=== PATIENT | female | born 1985 | race Hispanic/Latino ===

== ENCOUNTER 2016-09-07 12:24 | Inpatient (IN) | payer MEDICAID ==
[2016-09-07] MEDS ORDERED: LACTATED RINGERS 2,000 ML IV ONE (13:34)
[2016-09-07] MEDS ORDERED: ZOFRAN IV ONE ×3 (13:36→14:00)
[2016-09-07] MEDS ORDERED: NACL 0.9% IV ONE (14:00)
[2016-09-07] MEDS ORDERED: LACTATED RINGERS 1,000 ML IV SCH ×2 (14:00)
[2016-09-07] MEDS ORDERED: ePHEDrine SULFATE IV PRN ×2 (17:50→20:37)
[2016-09-07] MEDS ORDERED: SUBLIMAZE IV PRN (17:50)
[2016-09-07] MEDS ORDERED: ZOFRAN IV PRN (17:50)
[2016-09-07] MEDS ORDERED: BRETHINE SUB-Q PRN (17:50)
[2016-09-07] MEDS ORDERED: MINERAL OIL PO PRN (17:50)
[2016-09-07] MEDS ORDERED: BRETHINE IVP PRN (17:50)
[2016-09-07] MEDS ORDERED: PITOCin/NS 30 UNIT/500ML 500 ML IV SCH (18:00)
[2016-09-07] MEDS ORDERED: PITOCin/NS 20 UNIT/1000ML DRIP 1,000 ML IV SCH (18:00)
--- NOTE | 2016-09-07 18:00 | History and Physical Report ---
History of Present Illness Date of examination: 09/07/16 (Obs in [facility] for c/o vomiting and diarrhea since 01 :00 this AM, now improved after IVF and Zofran. Now c/o lower back pain and lower abd pain intermittentlty abd pelvic pressure. ) Date of admission: 09/07/16 17:32 Past History Past Medical History: other (1. Scoliosis: had epidural without difficulty with previous 2 pregnancies. 2. Fx R arm, 3. hx preE with previous pg, 4. 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 Prescribed Valtrex) Family/Genetic History: diabetes Social history: no significant social history - Obstetrical History Expected Date of Delivery: 09/29/16 Actual Gestation: 36 Week(s) 6 Day(s) : 3 Para: 2 Hx # Term Pregnancies: 2 Number of Living Children: 2 #1 year: ,011 Birthweight: 3.941 kg Method of Delivery: Vaginal Gestational age at delivery: 40 Complications: none #2 Gender: Male year: ,[birth year] Birthweight: 3.685 kg Method of Delivery: Vaginal Gestational age at delivery: 38 Complications: none Medications and Allergies Allergies Allergy/AdvReac Type Severity Reaction Status Date / Time No Known Allergies Allergy Verified 09/07/16 13:20 Home Medications Medication Instructions Recorded Confirmed Last Taken Type Aspirin EC [Aspirin Enteric Coated 81 mg PO QDAY 09/07/16 09/07/16 09/06/16 21: 00 History TAB] 1 Pnv with Ca,No.72/Iron/FA [Pnv 1 tab PO DAILY 09/07/16 09/07/16 09/06/16 21:00 History Plus Multivit Tab] 1 Review of Systems Constitutional: fever, other (Reports onset of nausea, vomiting and diarrhea starting 01:00 this AM.) Eyes: PERRL Ears, nose, mouth and throat: deferred Gastrointestinal: abdominal pain (reports lower abd cramping c/w ctx since arriving OBT), nausea, vomiting, diarrhea Integumentary: rash (Rash on face noted: pt states she always gets this rash when she has vomiting) - Vital Signs Vital signs: Vital Signs Pulse BP Pulse Ox 98 H 124/69 97 09/07/16 13:15 09/07/16 13:15 09/07/16 13:15 Temp Pulse Resp BP Pulse Ox 101.4 F H 107 H 20 139/77 97 09/07/16 17:07 09/07/16 16:57 09/07/16 17:07 09/07/16 16:53 09/07/16 16:57 - Physical Exam Breasts: Positive: normal Cardiovascular: Normal S1, Normal S2, No murmurs Lungs: Positive: Clear to auscultation Abdomen: Positive: normal appearance, soft, other (Reports mild tenderness suprapubic and no fundal tenderness on palpation) Genitourinary (Female): Positive: normal external genitalia (VE deferred d/t recent exam by RN and fever) Uterus: Positive: normal size Adnexa: both: normal Extremities: Deep Tendon Reflex Grade: Normal +2 - Obstetrical FHR: auscultation normal Uterine Contraction Monitor Mode: External Cervical Dilatation: 4.5 (Per RN exam) Uterine Contraction Pattern: Irregular Results All other labs normal. Assessment and Plan A. 1. PMHx: obesity preeclampsia Abn pap Scoliosis 2. This gestation: Amniotic band with no involvement followed weekly by [facility]\ hydramnios CITLALI >24 Unstable lie 3. Current: Fever (101.4)with onset during evaluation OBT Nausea, vomiting, diarrhea onset 01:00 today Cx change 3cm to 4.5 with ongoing ctx during obs in OBT P 1. Admit to L&D 2. Routine labs, VS, EFM 3. Obs for labor progress 4 Ongoing assessment of fever and other sx 6. UA, CMP added to routine labs 7. Pt care discussed with Dr Branch who was informed of above info and agrees with POC. Per Dr Branch, abx held until CBC results evaluated. 8. End of my shift report to Dr Branch to assume care now.
[2016-09-07 19:53] LABS: Hematocrit 35.2 % (30.3-42.9); Hemoglobin 11.9 gm/dl (10.1-14.3); Mean Corpuscular HGB Conc 34 % (30-34); Mean Corpuscular Hemoglobin 29 pg (28-32); Mean Corpuscular Volume 85 fl (79-97); Platelet Count 152 K/mm3 (140-440); Red Blood Count 4.15 M/mm3 (3.65-5.03); Red Cell Distribution Width 13.9 % (13.2-15.2); White Blood Count 6.5 K/mm3 (4.5-11.0)
[2016-09-07] MEDS ORDERED: NARCAN 2 MG/2 ML IV PRN (20:37)
--- NOTE | 2016-09-07 20:37 | Anesthesia Consultation ---
Anesthesia Consult and Med Hx Date of service: 09/07/16 - Airway Anesthetic Teeth Evaluation: Good ROM Head & Neck: Adequate Mental/Hyoid Distance: Adequate Mallampati Class: Class II Intubation Access Assessment: Good - Pulmonary Exam CTA: Yes - Cardiac Exam Cardiac Exam: No Murmur - Pre-Operative Health Status ASA Pre-Surgery Classification: ASA2 Proposed Anesthetic Plan: Epidural - Pulmonary Hx Asthma: No COPD: No Hx Pneumonia: No - Cardiovascular System Hx Hypertension: Yes (Since the pregancy on labetolol) - Central Nervous System Hx Seizures: No Hx Psychiatric Problems: No - Endocrine Hx Renal Disease: No Hx End Stage Renal Disease: No Hx Hypothyroidism: No Hx Hyperthyroidism: No - Hematic Hx Anemia: No Hx Sickle Cell Disease: No - Other Systems Hx Alcohol Use: No
[2016-09-07] MEDS: LACTATED RINGERS 1,000 ML IV SCH (21:14)
[2016-09-07] MEDS: fentaNYL-BUPIV 2 MCG/ML-0.125% 100 ML EPIDURAL SCH (21:30)
[2016-09-07 22:24] LABS: Bacteria,Urine 1+ /HPF (Negative); Mucus,Urine 2+ /HPF; WBC,Urine < 1.0 /HPF (0.0-6.0)
[2016-09-08] MEDS ORDERED: XYLOCAINE 2% INFILTRATI ONE (02:17)
[2016-09-08] MEDS: LACTATED RINGERS 1,000 ML IV SCH ×2 (06:41→11:29)
[2016-09-08 06:56] LABS: Alanine Aminotransferase 6 units/L (7-56); Albumin 2.9 g/dL (3.9-5); Albumin/Globulin Ratio 1.1 %; Alkaline Phosphatase 91 units/L (35-129); Anion Gap 20 mmol/L; Bilirubin,Total 0.5 mg/dL (0.1-1.2); Blood Urea Nitrogen 5 mg/dL (7-17); Calcium 8.5 mg/dL (8.4-10.2); Carbon Dioxide 19 mmol/L (22-30); Chloride 101.4 mmol/L (98-107); Glucose 74 mg/dL (65-100); Potassium 3.4 mmol/L (3.6-5.0); Sodium 137 mmol/L (137-145); Total Protein 5.6 g/dL (6.3-8.2)
[2016-09-08] MEDS ORDERED: ePHEDrine SULFATE ONE (10:04)
[2016-09-08] MEDS: fentaNYL-BUPIV 2 MCG/ML-0.125% 100 ML EPIDURAL SCH (10:35)
--- NOTE | 2016-09-08 10:46 | Progress Note ---
Assessment and Plan Assume care of pt. A: 1. PMHx: obesity preeclampsia Abn pap Scoliosis 2. This gestation: Amniotic band with no involvement followed weekly by [facility] Polyhydramnios CITLALI >24 Unstable lie; Vertex presentation confirmed by US 09/07/16 3. Current: Fever resolved Nausea, vomiting, diarrhea: resolved SVE: /-3 Comfortable with epidural Pitocin currently 12 mu P: Routine intrapartum care Pitocin Augmentation Anticipate Subjective - Subjective Date of service: 09/08/16 Principal diagnosis: IUP at 37 wks, Polyhydramnios, unstable lie Interval history: See H&P Patient reports: movement normal, no loss of fluid, no vaginal bleeding Objective - Vital Signs Vital Signs: Vital Signs - 12hr 09/07/16 09/07/16 09/07/16 22:43 22:58 23:13 Temperature Pulse Rate 105 H 88 94 H Respiratory Rate Blood Pressure 145/68 130/63 130/67 O2 Sat by Pulse Oximetry 09/07/16 09/07/16 09/07/16 23:28 23:43 23:58 Temperature Pulse Rate 98 H 100 H 88 Respiratory Rate Blood Pressure 149/65 147/68 143/65 O2 Sat by Pulse Oximetry 09/08/16 09/08/16 09/08/16 00:14 00:28 00:43 Temperature Pulse Rate 91 H 97 H 106 H Respiratory Rate Blood Pressure 133/67 128/63 138/67 O2 Sat by Pulse Oximetry 09/08/16 09/08/16 09/08/16 00:59 01:13 01:28 Temperature Pulse Rate 104 H 110 H 94 H Respiratory Rate Blood Pressure 124/58 135/63 138/65 O2 Sat by Pulse Oximetry 09/08/16 09/08/16 09/08/16 01:43 02:25 02:30 Temperature 98.0 F Pulse Rate 97 H 101 H Respiratory Rate Blood Pressure 141/65 140/76 O2 Sat by Pulse Oximetry 09/08/16 09/08/16 09/08/16 02:40 02:55 03:10 Temperature Pulse Rate 96 H 92 H 93 H Respiratory Rate Blood Pressure 131/74 133/65 133/64 O2 Sat by Pulse Oximetry 09/08/16 09/08/16 09/08/16 03:25 03:40 03:57 Temperature Pulse Rate 107 H 100 H 97 H Respiratory Rate Blood Pressure 137/70 136/68 116/62 O2 Sat by Pulse Oximetry 09/08/16 09/08/16 09/08/16 04:10 04:25 04:40 Temperature Pulse Rate 95 H 90 92 H Respiratory Rate Blood Pressure 115/55 107/55 110/53 O2 Sat by Pulse Oximetry 09/08/16 09/08/16 09/08/16 04:55 05:10 05:25 Temperature Pulse Rate 87 96 H 85 Respiratory Rate Blood Pressure 109/55 115/56 115/59 O2 Sat by Pulse Oximetry 09/08/16 09/08/16 09/08/16 05:42 05:55 06:11 Temperature Pulse Rate 85 84 86 Respiratory Rate Blood Pressure 119/57 123/63 110/56 O2 Sat by Pulse Oximetry 09/08/16 09/08/16 09/08/16 06:25 06:39 06:40 Temperature 97.9 F Pulse Rate 83 87 Respiratory Rate Blood Pressure 136/67 133/63 O2 Sat by Pulse Oximetry 09/08/16 09/08/16 09/08/16 06:55 07:04 07:10 Temperature 97.8 F Pulse Rate 87 83 Respiratory 18 Rate Blood Pressure 125/57 124/62 O2 Sat by Pulse Oximetry 09/08/16 09/08/16 09/08/16 07:25 07:41 07:55 Temperature Pulse Rate 93 H 92 H 90 Respiratory Rate Blood Pressure 125/56 130/65 123/62 O2 Sat by Pulse Oximetry 09/08/16 09/08/16 09/08/16 08:11 08:13 08:14 Temperature Pulse Rate 88 85 78 Respiratory Rate Blood Pressure 145/65 130/62 O2 Sat by Pulse 97 Oximetry 09/08/16 09/08/16 09/08/16 08:16 08:19 08:24 Temperature Pulse Rate 86 83 84 Respiratory Rate Blood Pressure 124/59 O2 Sat by Pulse 96 97 Oximetry 09/08/16 09/08/16 09/08/16 08:25 08:29 08:34 Temperature Pulse Rate 87 93 H 82 Respiratory Rate Blood Pressure 130/69 O2 Sat by Pulse 97 97 Oximetry 09/08/16 09/08/16 09/08/16 08:39 08:40 08:44 Temperature Pulse Rate 81 73 88 Respiratory Rate Blood Pressure 135/67 O2 Sat by Pulse 95 97 Oximetry 09/08/16 09/08/16 09/08/16 08:49 08:54 08:57 Temperature Pulse Rate 82 89 80 Respiratory Rate Blood Pressure 130/75 O2 Sat by Pulse 96 97 Oximetry 09/08/16 09/08/16 09/08/16 08:59 09:04 09:09 Temperature Pulse Rate 75 81 82 Respiratory Rate Blood Pressure O2 Sat by Pulse 97 96 96 Oximetry 09/08/16 09/08/16 09/08/16 09:10 09:14 09:19 Temperature Pulse Rate 90 90 80 Respiratory Rate Blood Pressure 126/64 O2 Sat by Pulse 97 97 Oximetry 09/08/16 09/08/16 09/08/16 09:24 09:25 09:29 Temperature Pulse Rate 80 69 78 Respiratory Rate Blood Pressure 133/81 O2 Sat by Pulse 97 96 Oximetry 09/08/16 09/08/16 09/08/16 09:34 09:39 09:40 Temperature Pulse Rate 84 77 75 Respiratory Rate Blood Pressure 139/82 O2 Sat by Pulse 95 97 Oximetry 09/08/16 09/08/16 09/08/16 09:44 09:49 09:54 Temperature Pulse Rate 92 H 95 H 89 Respiratory Rate Blood Pressure O2 Sat by Pulse 96 98 98 Oximetry 09/08/16 09/08/16 09/08/16 09:57 09:59 10:01 Temperature Pulse Rate 90 89 96 H Respiratory Rate Blood Pressure 132/72 O2 Sat by Pulse 98 91 Oximetry 09/08/16 09/08/16 09/08/16 10:04 10:07 10:09 Temperature Pulse Rate 91 H 92 H 85 Respiratory Rate Blood Pressure 159/81 150/62 O2 Sat by Pulse 99 99 Oximetry 09/08/16 09/08/16 09/08/16 10:11 10:14 10:16 Temperature Pulse Rate 82 89 91 H Respiratory Rate Blood Pressure 141/65 139/66 O2 Sat by Pulse 99 Oximetry 09/08/16 09/08/16 09/08/16 10:17 10:19 10:21 Temperature Pulse Rate 85 82 85 Respiratory Rate Blood Pressure 121/67 133/69 130/62 O2 Sat by Pulse 98 Oximetry 09/08/16 09/08/16 09/08/16 10:23 10:25 10:27 Temperature Pulse Rate 86 93 H 83 Respiratory Rate Blood Pressure 131/59 103/57 111/58 O2 Sat by Pulse 97 Oximetry 09/08/16 09/08/16 09/08/16 10:30 10:31 10:34 Temperature Pulse Rate 87 86 85 Respiratory Rate Blood Pressure 114/65 113/55 118/59 O2 Sat by Pulse 98 Oximetry 09/08/16 09/08/16 10:35 10:37 Temperature Pulse Rate 89 90 Respiratory 20 Rate Blood Pressure 142/75 146/79 O2 Sat by Pulse 97 Oximetry - Exam Breasts: normal Cardiovascular: Regular rate Lungs: Clear to auscultation, Normal air movement Vulva: both: normal FHR: category 1 Uterine Contraction Monitor Mode: External Cervical Dilatation: 5 Cervical Effacement Percentage: 75 station: -3 Uterine Contraction Pattern: Irregular Uterine Tone Measurement Phase: Resting Uterine Contraction Intensity: Mild Deep Tendon Reflex Grade: Normal +2 - Labs Labs: Abnormal Labs 09/08/16 05:59 Potassium 3.4 L Carbon Dioxide 19 L BUN 5 L Creatinine 0.4 L ALT 6 L Total Protein 5.6 L Albumin 2.9 L Laboratory Results - last 24 hr 09/07/16 09/07/16 09/07/16 19:35 19:35 21:45 WBC 6.5 RBC 4.15 Hgb 11.9 Hct 35.2 MCV 85 MCH 29 MCHC 34 RDW 13.9 Plt Count 152 Sodium Potassium Chloride Carbon Dioxide Anion Gap BUN Creatinine Estimated GFR BUN/Creatinine Ratio Glucose Calcium Total Bilirubin AST ALT Alkaline Phosphatase Total Protein Albumin Albumin/Globulin Ratio Urine WBC (Auto) < 1.0 Urine RBC (Auto) 7.0 U Epithel Cells (Auto) 2.0 Urine Bacteria (Auto) 1+ Urine Mucus 2+ Blood Type O POSITIVE Antibody Screen Negative 09/08/16 05:59 WBC RBC Hgb Hct MCV MCH MCHC RDW Plt Count Sodium 137 Potassium 3.4 L Chloride 101.4 Carbon Dioxide 19 L Anion Gap 20 BUN 5 L Creatinine 0.4 L Estimated GFR > 60 BUN/Creatinine Ratio 12.50 Glucose 74 Calcium 8.5 Total Bilirubin 0.5 AST 11 ALT 6 L Alkaline Phosphatase 91 Total Protein 5.6 L Albumin 2.9 L Albumin/Globulin Ratio 1.1 Urine WBC (Auto) Urine RBC (Auto) U Epithel Cells (Auto) Urine Bacteria (Auto) Urine Mucus Blood Type Antibody Screen
--- NOTE | 2016-09-08 16:26 | Progress Note ---
Assessment and Plan A: 1. PMHx: obesity preeclampsia Abn pap Scoliosis 3. Current: Comfortable with epidural Pitocin currently 20 mu SVE: 6/75/-3 AROM, Large amount clear fluid FSE placed Position to far L Lateral with anterior leg in stirrup P: Routine intrapartum care Pitocin Augmentation Anticipate Subjective - Subjective Date of service: 09/08/16 Principal diagnosis: IUP at 37 wks, Polyhydramnios, unstable lie Interval history: See H&P Patient reports: movement normal Objective - Vital Signs Vital Signs: Vital Signs - 12hr 09/08/16 09/08/16 09/08/16 04:25 04:40 04:55 Temperature Pulse Rate 90 92 H 87 Respiratory Rate Blood Pressure 107/55 110/53 109/55 O2 Sat by Pulse Oximetry 09/08/16 09/08/16 09/08/16 05:10 05:25 05:42 Temperature Pulse Rate 96 H 85 85 Respiratory Rate Blood Pressure 115/56 115/59 119/57 O2 Sat by Pulse Oximetry 09/08/16 09/08/16 09/08/16 05:55 06:11 06:25 Temperature Pulse Rate 84 86 83 Respiratory Rate Blood Pressure 123/63 110/56 136/67 O2 Sat by Pulse Oximetry 09/08/16 09/08/16 09/08/16 06:39 06:40 06:55 Temperature 97.9 F Pulse Rate 87 87 Respiratory Rate Blood Pressure 133/63 125/57 O2 Sat by Pulse Oximetry 09/08/16 09/08/16 09/08/16 07:04 07:10 07:25 Temperature 97.8 F Pulse Rate 83 93 H Respiratory 18 Rate Blood Pressure 124/62 125/56 O2 Sat by Pulse Oximetry 09/08/16 09/08/16 09/08/16 07:41 07:55 08:11 Temperature Pulse Rate 92 H 90 88 Respiratory Rate Blood Pressure 130/65 123/62 145/65 O2 Sat by Pulse Oximetry 09/08/16 09/08/16 09/08/16 08:13 08:14 08:16 Temperature Pulse Rate 85 78 86 Respiratory Rate Blood Pressure 130/62 124/59 O2 Sat by Pulse 97 Oximetry 09/08/16 09/08/16 09/08/16 08:19 08:24 08:25 Temperature Pulse Rate 83 84 87 Respiratory Rate Blood Pressure 130/69 O2 Sat by Pulse 96 97 Oximetry 09/08/16 09/08/16 09/08/16 08:29 08:34 08:39 Temperature Pulse Rate 93 H 82 81 Respiratory Rate Blood Pressure O2 Sat by Pulse 97 97 95 Oximetry 09/08/16 09/08/16 09/08/16 08:40 08:44 08:49 Temperature Pulse Rate 73 88 82 Respiratory Rate Blood Pressure 135/67 O2 Sat by Pulse 97 96 Oximetry 09/08/16 09/08/16 09/08/16 08:54 08:57 08:59 Temperature Pulse Rate 89 80 75 Respiratory Rate Blood Pressure 130/75 O2 Sat by Pulse 97 97 Oximetry 09/08/16 09/08/16 09/08/16 09:04 09:09 09:10 Temperature Pulse Rate 81 82 90 Respiratory Rate Blood Pressure 126/64 O2 Sat by Pulse 96 96 Oximetry 09/08/16 09/08/16 09/08/16 09:14 09:19 09:24 Temperature Pulse Rate 90 80 80 Respiratory Rate Blood Pressure O2 Sat by Pulse 97 97 97 Oximetry 09/08/16 09/08/16 09/08/16 09:25 09:29 09:34 Temperature Pulse Rate 69 78 84 Respiratory Rate Blood Pressure 133/81 O2 Sat by Pulse 96 95 Oximetry 09/08/16 09/08/16 09/08/16 09:39 09:40 09:44 Temperature Pulse Rate 77 75 92 H Respiratory Rate Blood Pressure 139/82 O2 Sat by Pulse 97 96 Oximetry 09/08/16 09/08/16 09/08/16 09:49 09:54 09:57 Temperature Pulse Rate 95 H 89 90 Respiratory Rate Blood Pressure 132/72 O2 Sat by Pulse 98 98 Oximetry 09/08/16 09/08/16 09/08/16 09:59 10:01 10:04 Temperature Pulse Rate 89 96 H 91 H Respiratory Rate Blood Pressure O2 Sat by Pulse 98 91 99 Oximetry 09/08/16 09/08/16 09/08/16 10:07 10:09 10:11 Temperature Pulse Rate 92 H 85 82 Respiratory Rate Blood Pressure 159/81 150/62 141/65 O2 Sat by Pulse 99 Oximetry 09/08/16 09/08/16 09/08/16 10:14 10:16 10:17 Temperature Pulse Rate 89 91 H 85 Respiratory Rate Blood Pressure 139/66 121/67 O2 Sat by Pulse 99 Oximetry 09/08/16 09/08/16 09/08/16 10:19 10:21 10:23 Temperature Pulse Rate 82 85 86 Respiratory Rate Blood Pressure 133/69 130/62 131/59 O2 Sat by Pulse 98 Oximetry 09/08/16 09/08/16 09/08/16 10:25 10:27 10:30 Temperature Pulse Rate 93 H 83 87 Respiratory Rate Blood Pressure 103/57 111/58 114/65 O2 Sat by Pulse 97 98 Oximetry 09/08/16 09/08/16 09/08/16 10:31 10:34 10:35 Temperature Pulse Rate 86 85 89 Respiratory 20 Rate Blood Pressure 113/55 118/59 142/75 O2 Sat by Pulse 97 Oximetry 09/08/16 09/08/16 09/08/16 10:37 10:40 10:45 Temperature Pulse Rate 90 86 90 Respiratory Rate Blood Pressure 146/79 O2 Sat by Pulse 98 98 Oximetry 09/08/16 09/08/16 09/08/16 10:50 10:55 11:00 Temperature Pulse Rate 98 H 99 H 90 Respiratory Rate Blood Pressure 138/75 O2 Sat by Pulse 98 97 97 Oximetry 09/08/16 09/08/16 09/08/16 11:05 11:10 11:15 Temperature Pulse Rate 87 93 H 94 H Respiratory Rate Blood Pressure O2 Sat by Pulse 99 97 98 Oximetry 09/08/16 09/08/16 09/08/16 11:20 11:24 11:25 Temperature Pulse Rate 94 H 83 87 Respiratory Rate Blood Pressure 140/70 O2 Sat by Pulse 97 96 Oximetry 09/08/16 09/08/16 09/08/16 11:30 11:35 11:38 Temperature 98.5 F Pulse Rate 96 H 82 Respiratory 20 Rate Blood Pressure O2 Sat by Pulse 97 97 Oximetry 09/08/16 09/08/16 09/08/16 11:39 11:40 11:45 Temperature Pulse Rate 93 H 95 H 95 H Respiratory Rate Blood Pressure 139/77 O2 Sat by Pulse 96 97 Oximetry 09/08/16 09/08/16 09/08/16 11:50 11:53 11:56 Temperature Pulse Rate 90 85 89 Respiratory Rate Blood Pressure 132/73 O2 Sat by Pulse 96 97 Oximetry 09/08/16 09/08/1609/08/17 12:00 12:06 12:09 Temperature Pulse Rate 98 H 83 85 Respiratory Rate Blood Pressure 134/74 O2 Sat by Pulse 99 98 Oximetry 09/08/16 09/08/16 09/08/16 12:10 12:15 12:20 Temperature Pulse Rate 81 95 H 81 Respiratory Rate Blood Pressure O2 Sat by Pulse 98 96 97 Oximetry 09/08/16 09/08/16 09/08/16 12:23 12:26 12:31 Temperature Pulse Rate 98 H 85 79 Respiratory Rate Blood Pressure 139/78 O2 Sat by Pulse 95 95 Oximetry 09/08/16 09/08/16 09/08/16 12:33 12:35 12:39 Temperature Pulse Rate 92 H 82 92 H Respiratory Rate Blood Pressure 138/72 O2 Sat by Pulse 94 95 94 Oximetry 09/08/16 09/08/16 09/08/16 12:41 12:44 12:45 Temperature Pulse Rate 87 82 87 Respiratory Rate Blood Pressure O2 Sat by Pulse 94 94 95 Oximetry 09/08/16 09/08/16 09/08/16 12:50 12:53 12:55 Temperature Pulse Rate 88 85 81 Respiratory Rate Blood Pressure 149/67 O2 Sat by Pulse 96 95 Oximetry 09/08/16 09/08/16 09/08/16 13:01 13:05 13:08 Temperature Pulse Rate 85 83 86 Respiratory Rate Blood Pressure 140/67 O2 Sat by Pulse 96 96 Oximetry 09/08/16 09/08/16 09/08/16 13:10 13:15 13:20 Temperature Pulse Rate 94 H 94 H 87 Respiratory Rate Blood Pressure O2 Sat by Pulse 97 98 98 Oximetry 09/08/16 09/08/16 09/08/16 13:25 13:31 13:36 Temperature Pulse Rate 95 H 86 89 Respiratory Rate Blood Pressure 132/77 O2 Sat by Pulse 97 98 98 Oximetry 09/08/16 09/08/16 09/08/16 13:39 13:47 13:52 Temperature Pulse Rate 93 H 93 H 93 H Respiratory Rate Blood Pressure 130/68 O2 Sat by Pulse 98 97 Oximetry 09/08/16 09/08/16 09/08/16 13:54 13:56 14:01 Temperature Pulse Rate 82 95 H 85 Respiratory Rate Blood Pressure 124/69 O2 Sat by Pulse 98 98 Oximetry 09/08/16 09/08/16 09/08/16 14:06 14:08 14:12 Temperature Pulse Rate 89 82 82 Respiratory Rate Blood Pressure 128/66 O2 Sat by Pulse 97 97 Oximetry 09/08/16 09/08/16 09/08/16 14:17 14:22 14:23 Temperature Pulse Rate 95 H 86 82 Respiratory Rate Blood Pressure 115/66 O2 Sat by Pulse 99 98 Oximetry 09/08/16 09/08/16 09/08/16 14:26 14:31 14:37 Temperature Pulse Rate 89 87 81 Respiratory Rate Blood Pressure O2 Sat by Pulse 98 97 98 Oximetry 09/08/16 09/08/16 09/08/16 14:39 14:41 14:47 Temperature Pulse Rate 92 H 82 94 H Respiratory Rate Blood Pressure 135/66 O2 Sat by Pulse 99 95 Oximetry 09/08/16 09/08/16 09/08/16 14:52 14:53 14:57 Temperature Pulse Rate 102 H 90 84 Respiratory Rate Blood Pressure 119/65 O2 Sat by Pulse 99 99 Oximetry 09/08/16 09/08/16 09/08/16 15:02 15:06 15:07 Temperature Pulse Rate 86 87 87 Respiratory Rate Blood Pressure O2 Sat by Pulse 98 94 99 Oximetry 09/08/16 09/08/16 09/08/16 15:10 15:12 15:17 Temperature Pulse Rate 87 81 83 Respiratory Rate Blood Pressure 129/60 O2 Sat by Pulse 99 99 Oximetry 09/08/16 09/08/16 09/08/16 15:21 15:23 15:26 Temperature Pulse Rate 85 87 85 Respiratory Rate Blood Pressure 132/60 O2 Sat by Pulse 99 100 Oximetry 09/08/16 09/08/16 09/08/16 15:31 15:37 15:42 Temperature Pulse Rate 90 86 93 H Respiratory Rate Blood Pressure O2 Sat by Pulse 100 99 98 Oximetry 09/08/16 09/08/16 09/08/16 15:47 15:52 15:57 Temperature Pulse Rate 88 103 H 87 Respiratory Rate Blood Pressure O2 Sat by Pulse 98 98 99 Oximetry 09/08/16 09/08/16 09/08/16 16:01 16:03 16:07 Temperature Pulse Rate 69 95 H 90 Respiratory Rate Blood Pressure O2 Sat by Pulse 99 88 100 Oximetry 09/08/16 09/08/16 09/08/16 16:09 16:12 16:17 Temperature Pulse Rate 110 H 99 H 91 H Respiratory Rate Blood Pressure 115/84 O2 Sat by Pulse 98 98 Oximetry - Exam Lungs: Normal air movement Abdomen: Present: other (gravid) Vulva: both: normal FHR: category 1 Uterine Contraction Monitor Mode: External Cervical Dilatation: 6 (AROM, Large amt clear fluid, FSE placed with exam) Cervical Effacement Percentage: 75 (Head applied to cervix) station: -3 Uterine Contraction Pattern: Regular Uterine Tone Measurement Phase: Resting Uterine Contraction Intensity: Moderate (Palpates) Extremities: normal Deep Tendon Reflex Grade: Normal +2 - Labs Labs: Abnormal Labs 09/08/16 05:59 Potassium 3.4 L Carbon Dioxide 19 L BUN 5 L Creatinine 0.4 L ALT 6 L Total Protein 5.6 L Albumin 2.9 L Laboratory Results - last 24 hr 09/07/16 09/07/16 09/07/16 19:35 19:35 21:45 WBC 6.5 RBC 4.15 Hgb 11.9 Hct 35.2 MCV 85 MCH 29 MCHC 34 RDW 13.9 Plt Count 152 Sodium Potassium Chloride Carbon Dioxide Anion Gap BUN Creatinine Estimated GFR BUN/Creatinine Ratio Glucose Calcium Total Bilirubin AST ALT Alkaline Phosphatase Total Protein Albumin Albumin/Globulin Ratio Urine WBC (Auto) < 1.0 Urine RBC (Auto) 7.0 U Epithel Cells (Auto) 2.0 Urine Bacteria (Auto) 1+ Urine Mucus 2+ Blood Type O POSITIVE Antibody Screen Negative 09/08/16 05:59 WBC RBC Hgb Hct MCV MCH MCHC RDW Plt Count Sodium 137 Potassium 3.4 L Chloride 101.4 Carbon Dioxide 19 L Anion Gap 20 BUN 5 L Creatinine 0.4 L Estimated GFR > 60 BUN/Creatinine Ratio 12.50 Glucose 74 Calcium 8.5 Total Bilirubin 0.5 AST 11 ALT 6 L Alkaline Phosphatase 91 Total Protein 5.6 L Albumin 2.9 L Albumin/Globulin Ratio 1.1 Urine WBC (Auto) Urine RBC (Auto) U Epithel Cells (Auto) Urine Bacteria (Auto) Urine Mucus Blood Type Antibody Screen
[2016-09-08 17:00] LABS: Alanine Aminotransferase 6 units/L (7-56); Albumin 3.3 g/dL (3.9-5); Albumin/Globulin Ratio 1.1 %; Alkaline Phosphatase 102 units/L (35-129); Bilirubin,Total 0.4 mg/dL (0.1-1.2); Blood Urea Nitrogen 6 mg/dL (7-17); Calcium 8.7 mg/dL (8.4-10.2); Carbon Dioxide 22 mmol/L (22-30); Chloride 101.3 mmol/L (98-107); Glucose 61 mg/dL (65-100); Potassium 4.3 mmol/L (3.6-5.0); Sodium 139 mmol/L (137-145); Total Protein 6.2 g/dL (6.3-8.2)
[2016-09-08 17:13] LABS: Bacteria,Urine 1+ /HPF (Negative); Bilirubin,Urine NEG (Negative); Blood,Urine MOD (Negative); Ketones,Urine 80 mg/dL (Negative); Leukocyte Esterase,Urine NEG (Negative); Mucus,Urine 2+ /HPF; Nitrite,Urine NEG (Negative)
[2016-09-08 17:15] LABS: Anion Gap 20 mmol/L
--- NOTE | 2016-09-08 18:00 | Procedure Note ---
OB Delivery Note - Delivery Date of Delivery: 09/08/16 Surgeon: TIMOTHY TORRES Estimated blood loss: other (150cc) - Vaginal Delivery presentation: vertex Delivery position: OA Intrapartum events: labor-<37 weeks, febrile- temp >100.3, hydramnios, mult.variable deceleratio Delivery induction: oxytocin Delivery augmentation: pitocin Delivery monitor: external FHT, external uterine Route of delivery: Delivery placenta: spontaneous Delivery cord: 3 umbilical vessels Episiotomy: none Delivery laceration: none Anesthesia: epidural - Infant A at 1 minute: 8 at 5 minutes: 9 Gender: Male ([id number])
[2016-09-08] MEDS ORDERED: MILK OF MAGNESIA PO PRN (18:03)
[2016-09-08] MEDS ORDERED: DERMOPLAST TP PRN (18:03)
[2016-09-08] MEDS ORDERED: LANSINOH TP PRN (18:03)
[2016-09-08] MEDS ORDERED: PHENERGAN PR PRN (18:03)
[2016-09-08] MEDS ORDERED: NORCO 5/325 PO PRN (18:03)
[2016-09-08] MEDS ORDERED: PHENERGAN PO PRN (18:03)
[2016-09-08] MEDS ORDERED: DULCOLAX PR PRN (18:03)
[2016-09-08] MEDS ORDERED: ZOFRAN IV PRN (18:03)
[2016-09-08] MEDS ORDERED: TYLENOL PO PRN (18:03)
[2016-09-08] MEDS ORDERED: TUCKS PAD TP PRN (18:03)
[2016-09-08] MEDS ORDERED: BENADRYL PO PRN (18:03)
[2016-09-08] MEDS ORDERED: PITOCin/NS 20 UNIT/1000ML DRIP 1,000 ML IV SCH (19:00)
[2016-09-08] MEDS ORDERED: SODIUM CHLORIDE FLUSH SYRINGE 10 ML IV NR (19:00)
[2016-09-08] MEDS: MOTRIN PO SCH (23:33)
[2016-09-08] MEDS: FEOSOL PO SCH (23:34)
[2016-09-08] MEDS: COLACE PO SCH (23:34)
[2016-09-09] MEDS: MOTRIN PO SCH ×4 (05:19→23:43)
[2016-09-09 06:43] LABS: Hematocrit 29.5 % (30.3-42.9); Hemoglobin 9.9 gm/dl (10.1-14.3)
--- NOTE | 2016-09-09 07:21 | Progress Note ---
Assessment and Plan - Patient Problems (1) (normal spontaneous vaginal delivery) Diagnosis Date: 09/09/16 Current Visit: Yes Status: Resolved Plan to address problem: A: S/P - PPD #1 Doing well P: Probable discharge tomorrow if remains stable. Subjective - Subjective Date of service: 09/09/16 Principal diagnosis: s/p - PPD #1 Interval history: No complaints, feeling well. Bleeding improved. Patient reports: appetite normal, voiding normally, pain well controlled, flatus , ambulating normally [place]: doing well, nursing well Objective - Vital Signs Latest vital signs: Vital Signs Temp Pulse Pulse Resp BP BP Pulse Ox 09/09/16 05:14 97.7 F 91 H 18 119/68 09/09/16 00:00 98.7 F 101 H 20 124/65 09/08/16 20:15 70 18 121/50 09/08/16 19:23 103 H 120/56 09/08/16 19:09 93 H 131/58 09/08/16 18:53 101 H 106/58 09/08/16 18:38 103 H 119/58 09/08/16 18:23 96 H 119/53 09/08/16 18:09 93 H 104/52 09/08/16 17:22 93 H 99 09/08/16 17:17 103 H 98 09/08/16 17:11 95 H 97 09/08/16 17:08 88 119/59 09/08/16 17:07 93 H 98 09/08/16 17:02 93 H 98 09/08/16 16:56 102 H 98 09/08/16 16:54 88 113/53 09/08/16 16:52 94 H 97 09/08/16 16:47 99 H 95 09/08/16 16:46 85 94 09/08/16 16:42 87 99 09/08/16 16:37 93 H 100 09/08/16 16:34 98 H 86 09/08/16 16:32 94 H 98 09/08/16 16:27 84 96 09/08/16 16:24 80 106/53 09/08/16 16:22 90 94 09/08/16 16:21 90 94 09/08/16 16:17 91 H 98 09/08/16 16:12 99 H 98 09/08/16 16:09 110 H 115/84 09/08/16 16:07 90 100 09/08/16 16:03 95 H 88 09/08/16 16:01 69 99 09/08/16 15:57 87 99 09/08/16 15:52 103 H 98 09/08/16 15:47 88 98 09/08/16 15:42 93 H 98 09/08/16 15:37 86 99 09/08/16 15:31 90 100 09/08/16 15:26 85 100 09/08/16 15:23 87 132/60 09/08/16 15:21 85 99 09/08/16 15:17 83 99 09/08/16 15:12 81 99 09/08/16 15:10 87 129/60 09/08/16 15:07 87 99 09/08/16 15:06 87 94 09/08/16 15:02 86 98 09/08/16 14:57 84 99 09/08/16 14:53 90 119/65 09/08/16 14:52 102 H 99 09/08/16 14:47 94 H 95 09/08/16 14:41 82 99 09/08/16 14:39 92 H 135/66 09/08/16 14:37 81 98 09/08/16 14:31 87 97 09/08/16 14:26 89 98 09/08/16 14:23 82 115/66 09/08/16 14:22 86 98 09/08/16 14:17 95 H 99 09/08/16 14:12 82 97 09/08/16 14:08 82 128/66 09/08/16 14:06 89 97 09/08/16 14:01 85 98 09/08/16 13:56 95 H 98 09/08/16 13:54 82 124/69 09/08/16 13:52 93 H 97 09/08/16 13:47 93 H 98 09/08/16 13:39 93 H 130/68 09/08/16 13:36 89 98 09/08/16 13:31 86 98 09/08/16 13:25 95 H 132/77 97 09/08/16 13:20 87 98 09/08/16 13:15 94 H 98 09/08/16 13:10 94 H 97 09/08/16 13:08 86 140/67 09/08/16 13:05 83 96 09/08/16 13:01 85 96 09/08/16 12:55 81 95 09/08/16 12:53 85 149/67 09/08/16 12:50 88 96 09/08/16 12:45 87 95 09/08/16 12:44 82 94 09/08/16 12:41 87 94 09/08/16 12:39 92 H 138/72 94 09/08/16 12:35 82 95 09/08/16 12:33 92 H 94 09/08/16 12:31 79 95 09/08/16 12:26 85 95 09/08/16 12:23 98 H 139/78 09/08/16 12:20 81 97 09/08/16 12:15 95 H 96 09/08/16 12:10 81 98 09/08/16 12:09 85 134/74 09/08/16 12:06 83 98 09/08/16 12:00 98 H 99 09/08/16 11:56 89 97 09/08/16 11:53 85 132/73 09/08/16 11:50 90 96 09/08/16 11:45 95 H 97 09/08/16 11:40 95 H 96 09/08/16 11:39 93 H 139/77 09/08/16 11:38 98.5 F 20 09/08/16 11:35 82 97 09/08/16 11:30 96 H 97 09/08/16 11:25 87 96 09/08/16 11:24 83 140/70 09/08/16 11:20 94 H 97 09/08/16 11:15 94 H 98 09/08/16 11:10 93 H 97 09/08/16 11:05 87 99 09/08/16 11:00 90 97 09/08/16 10:55 99 H 138/75 97 09/08/16 10:50 98 H 98 09/08/16 10:45 90 98 09/08/16 10:40 86 98 09/08/16 10:37 90 146/79 09/08/16 10:35 89 20 142/75 97 09/08/16 10:34 85 118/59 09/08/16 10:31 86 113/55 09/08/16 10:30 87 114/65 98 09/08/16 10:27 83 111/58 09/08/16 10:25 93 H 103/57 97 09/08/16 10:23 86 131/59 09/08/16 10:21 85 130/62 09/08/16 10:19 82 133/69 98 09/08/16 10:17 85 121/67 09/08/16 10:16 91 H 139/66 09/08/16 10:14 89 99 09/08/16 10:11 82 141/65 09/08/16 10:09 85 150/62 99 09/08/16 10:07 92 H 159/81 09/08/16 10:04 91 H 99 09/08/16 10:01 96 H 91 09/08/16 09:59 89 98 09/08/16 09:57 90 132/72 09/08/16 09:54 89 98 09/08/16 09:49 95 H 98 09/08/16 09:44 92 H 96 09/08/16 09:40 75 139/82 09/08/16 09:39 77 97 09/08/16 09:34 84 95 09/08/16 09:29 78 96 09/08/16 09:25 69 133/81 09/08/16 09:24 80 97 09/08/16 09:19 80 97 09/08/16 09:14 90 97 09/08/16 09:10 90 126/64 09/08/16 09:09 82 96 09/08/16 09:04 81 96 09/08/16 08:59 75 97 09/08/16 08:57 80 130/75 09/08/16 08:54 89 97 09/08/16 08:49 82 96 09/08/16 08:44 88 97 09/08/16 08:40 73 135/67 09/08/16 08:39 81 95 09/08/16 08:34 82 97 09/08/16 08:29 93 H 97 09/08/16 08:25 87 130/69 09/08/16 08:24 84 97 09/08/16 08:19 83 96 09/08/16 08:16 86 124/59 09/08/16 08:14 78 97 09/08/16 08:13 85 130/62 09/08/16 08:11 88 145/65 09/08/16 07:55 90 123/62 09/08/16 07:41 92 H 130/65 09/08/16 07:25 93 H 125/56 Intake and Output 09/08/16 09/09/16 09/09/16 22:59 06:59 14:59 Output Total 230 Balance -230 Output: Urine 230 Indwelling Catheter 230 Other: Total, Output Amount 230 Estimated Blood Loss 150 - Exam Breasts: Present: deferred Cardiovascular: Present: Regular rate Lungs: Present: Clear to auscultation Abdomen: Present: normal appearance, soft Uterus: Present: normal, firm, fundal height below umbilicus Extremities: Present: normal - Labs Labs: Abnormal lab results 09/08/16 09/09/16 09/09/16 Range/Units 15:45 05:29 05:29 Hgb 9.9 L (10.1-14.3) gm/dl Hct 29.5 L (30.3-42.9) % Potassium 3.4 L D (3.6-5.0) mmol/L BUN 6 L (7-17) mg/dL Creatinine 0.4 L (0.7-1.2) mg/dL Glucose 61 L (65-100) mg/dL ALT 6 L (7-56) units/L Total Protein 6.2 L (6.3-8.2) g/dL Albumin 3.3 L (3.9-5) g/dL Laboratory Tests 09/07/16 09/07/16 09/07/16 19:35 19:35 21:45 WBC 6.5 RBC 4.15 Hgb 11.9 Hct 35.2 MCV 85 MCH 29 MCHC 34 RDW 13.9 Plt Count 152 Sodium Potassium Chloride Carbon Dioxide Anion Gap BUN Creatinine Estimated GFR BUN/Creatinine Ratio Glucose Calcium Total Bilirubin AST ALT Alkaline Phosphatase Total Protein Albumin Albumin/Globulin Ratio Urine Color Urine Turbidity Urine pH Ur Specific [place] Urine Protein Urine Glucose (UA) Urine Ketones Urine Blood Urine Nitrite Urine Bilirubin Urine Urobilinogen Ur Leukocyte Esterase Urine WBC (Auto) < 1.0 Urine RBC (Auto) 7.0 U Epithel Cells (Auto) 2.0 Urine Bacteria (Auto) 1+ Hyaline Casts Urine Mucus 2+ Blood Type O POSITIVE Antibody Screen Negative 09/08/16 09/08/16 09/08/16 05:59 15:45 16:50 WBC RBC Hgb Hct MCV MCH MCHC RDW Plt Count Sodium 137 139 Potassium 3.4 L 4.3 D Chloride 101.4 101.3 Carbon Dioxide 19 L 22 Anion Gap 20 20 BUN 5 L 6 L Creatinine 0.4 L 0.4 L Estimated GFR > 60 > 60 BUN/Creatinine Ratio 12.50 15.00 Glucose 74 61 L Calcium 8.5 8.7 Total Bilirubin 0.5 0.4 AST 11 14 ALT 6 L 6 L Alkaline Phosphatase 91 102 Total Protein 5.6 L 6.2 L Albumin 2.9 L 3.3 L Albumin/Globulin Ratio 1.1 1.1 Urine Color Yellow Urine Turbidity Clear Urine pH 6.0 Ur Specific [place] 1.015 Urine Protein 100 mg/dl Urine Glucose (UA) Neg Urine Ketones 80 Urine Blood Mod Urine Nitrite Neg Urine Bilirubin Neg Urine Urobilinogen 2.0 Ur Leukocyte Esterase Neg Urine WBC (Auto) 4.0 Urine RBC (Auto) 135.0 U Epithel Cells (Auto) < 1.0 Urine Bacteria (Auto) 1+ Hyaline Casts 1 Urine Mucus 2+ Blood Type Antibody Screen 09/09/16 09/09/16 05:29 05:29 WBC RBC Hgb 9.9 L Hct 29.5 L MCV MCH MCHC RDW Plt Count Sodium Potassium 3.4 L D Chloride Carbon Dioxide Anion Gap BUN Creatinine Estimated GFR BUN/Creatinine Ratio Glucose Calcium Total Bilirubin AST ALT Alkaline Phosphatase Total Protein Albumin Albumin/Globulin Ratio Urine Color Urine Turbidity Urine pH Ur Specific [place] Urine Protein Urine Glucose (UA) Urine Ketones Urine Blood Urine Nitrite Urine Bilirubin Urine Urobilinogen Ur Leukocyte Esterase Urine WBC (Auto) Urine RBC (Auto) U Epithel Cells (Auto) Urine Bacteria (Auto) Hyaline Casts Urine Mucus Blood Type Antibody Screen
[2016-09-09] MEDS: COLACE PO SCH ×2 (10:41→22:09)
[2016-09-09] MEDS: PRENATAL VITAMIN PO SCH (10:41)
[2016-09-09] MEDS: FEOSOL PO SCH ×2 (13:11→22:09)
[2016-09-09] MEDS ORDERED: M-M-R II VACCINE SUB-Q ONE (18:03)
[2016-09-09] MEDS ORDERED: BOOSTRIX IM ONE (18:03)
[2016-09-10] MEDS: MOTRIN PO SCH ×2 (05:43→12:35)
[2016-09-10] MEDS: FEOSOL PO SCH (09:34)
[2016-09-10] MEDS: COLACE PO SCH (09:34)
[2016-09-10] MEDS: PRENATAL VITAMIN PO SCH (09:34)
--- NOTE | 2016-09-10 11:08 | Progress Note ---
Assessment and Plan - Patient Problems (1) (normal spontaneous vaginal delivery) Diagnosis Date: 09/09/16 Current Visit: Yes Status: Resolved Plan to address problem: A: S/P - PPD #2 Doing well P: May go home today Subjective - Subjective Date of service: 09/10/16 Principal diagnosis: s/p - PPD #2 Interval history: No complaints, feeling well. Bleeding improved. Patient reports: appetite normal, voiding normally, pain well controlled, ambulating normally [place]: doing well, nursing well, bottle feeding Objective - Vital Signs Latest vital signs: Vital Signs Temp Pulse Resp BP 09/10/16 08:04 97.9 F 78 20 121/65 09/10/16 00:50 98.3 F 83 20 132/74 09/09/16 17:00 98.1 F 75 20 139/82 09/09/16 13:09 18 Intake and Output 09/09/16 09/10/16 09/10/16 22:59 06:59 14:59 Intake Total 480 240 Balance 480 240 Intake: Oral 480 240 Other: Total, Intake Amount 240 240 # Voids Void 1 - Exam Cardiovascular: Present: Regular rate Lungs: Present: Clear to auscultation Abdomen: Present: normal appearance, soft Uterus: Present: normal, firm, fundal height below umbilicus Extremities: Present: normal
--- NOTE | 2016-09-10 11:12 | Discharge Summary ---
Providers - Providers Date of Admission: 09/07/16 17:32 Date of discharge: 09/10/16 Attending physician: TIMOTHY WHITLEY MD Primary care physician: TIMOTHY WHITLEY MD Hospitalization Reason for admission: active labor, IUP at term Delivery: Episiotomy: none Laceration: none Other procedures: none complications: none Discharge diagnosis: IUP at term delivered baby: male Hospital course: Unremarkable. Condition at discharge: Good Disposition: DISCHARGED TO HOME OR SELFCARE - Discharge Diagnoses (1) (normal spontaneous vaginal delivery) Status: Resolved Plan - Discharge Medications Prescriptions: Ferrous Sulfate [Feosol 325 MG tab] 325 mg PO BID #60 tablet Ibuprofen [Motrin 600 MG tab] 600 mg PO Q6H #30 tablet Vit-Fe Fumar-FA [ Vitamin] 1 each PO QDAY #30 tablet - Provider Discharge Summary Activity: routine, no sex for 6 weeks, no heavy lifting 4 weeks, no strenuous exercise Diet: routine Instructions: routine Additional instructions: [] Smoking cessation referral if applicable(refer to patient education folder for contact #) [] Refer to [facility]'s [facility] Booklet Call your doctor immediately for: * Fever > 100.5 * Heavy vaginal bleeding ( >1 pad per hour) * Severe persistent headache * Shortness of breath * Reddened, hot, painful area to leg or breast * Drainage or odor from incision. * Keep incision clean and dry at all times and follow doctor's instructions regarding bathing/showering - Follow up plan Follow up: TIMOTHY STEWART MD [Primary Care Provider] - 6 Weeks
[2016-09-10 12:40] VITALS: BP 140/70
== END 2016-09-10 14:31 | disposition home or self-care (01) | DRG 774 ==
LOC: TRG 12:24 → LD 17:32 → OB 09-08 20:26
PROVIDERS: ADMIT Obstetrics & Gynecology; ATTEND Obstetrics & Gynecology
PROC: 10E0XZZ Delivery of Products of Conception, External Approach (ICD-10-PCS; principal; 2016-09-08)
PROC: 3E0S3CZ (ICD-10-PCS; 2016-09-08)
PROC: 00HU33Z Insertion of Infusion Device into Spinal Canal, Percutaneous Approach (ICD-10-PCS; 2016-09-08)
PROC: 3E033VJ Introduction of Other Hormone into Peripheral Vein, Percutaneous Approach (ICD-10-PCS; 2016-09-08)
DX: O60.14X0 Preterm labor third trimester with preterm delivery third trimester, not applicable or unspecified (principal); O75.2 Pyrexia during labor, not elsewhere classified; O41.8X30 Other specified disorders of amniotic fluid and membranes, third trimester, not applicable or unspecified; O14.94 Unspecified pre-eclampsia, complicating childbirth; O99.214 Obesity complicating childbirth; E66.9 Obesity, unspecified; O40.3XX0 Polyhydramnios, third trimester, not applicable or unspecified; O76 Abnormality in fetal heart rate and rhythm complicating labor and delivery; O32.0XX0 Maternal care for unstable lie, not applicable or unspecified; Z3A.36 36 weeks gestation of pregnancy; Z37.0 Single live birth; Z68.39 Body mass index [BMI] 39.0-39.9, adult
CPT/HCPCS: 36415; 59025; 80053; 81001; 81015; 84132; 85014; 85018; 85027; 86850; 86900; 86901; 87086; 96360; 96361; 96374; J2405; J2590; J7120

== ENCOUNTER 2021-01-26 20:41 | Inpatient (IN) | payer MEDICAID ==
[2021-01-26] MEDS ORDERED: LACTATED RINGERS 1,000 ML ONE (21:19)
[2021-01-26 22:00] LABS: Hematocrit 34.3 % (30.3-42.9); Hemoglobin 11.7 gm/dl (10.1-14.3); Mean Corpuscular HGB Conc 34 % (30-34); Mean Corpuscular Volume 87 fl (79-97); Platelet Count 173 K/mm3 (140-440); Red Blood Count 3.96 M/mm3 (3.65-5.03); Red Cell Distribution Width 14.5 % (13.2-15.2)
[2021-01-26] MEDS ORDERED: CARBOPROST TROMETHAMINE 250 MCG/1 ML INJ IM PRN (22:14)
[2021-01-26] MEDS ORDERED: METHYLERGONOVINE MALEATE 0.2 MG/ML VIAL IM PRN (22:14)
[2021-01-26] MEDS ORDERED: OXYTOCIN 10 UNIT/1 ML INJ IM PRN (22:14)
[2021-01-26] MEDS ORDERED: ePHEDrine SULFATE 50 MG/1 ML INJ IV PRN (22:14)
[2021-01-26] MEDS ORDERED: AMPICILLIN/NS 2 GM/100 ML 2 GM/100 ML BAG IV ONE (22:14)
[2021-01-26] MEDS ORDERED: MINERAL OIL 30 ML ORAL LIQD PO PRN (22:14)
[2021-01-26] MEDS ORDERED: DINOPROSTONE 10 MG VAG SUPP VG ONE (22:14)
[2021-01-26] MEDS ORDERED: miSOPROStol 200 MCG TAB PR PRN (22:14)
[2021-01-26] MEDS ORDERED: LIDOCAINE (2%) 20 MG/1 ML VIAL 20 ML MDV INFILTRATI ONE (22:14)
[2021-01-26] MEDS ORDERED: TERBUTALINE 1 MG/1 ML INJ SUB-Q PRN (22:14)
[2021-01-26 23:00] LABS: Bilirubin,Urine NEG (Negative); Blood,Urine NEG (Negative); Color,Urine Amber (Yellow); Mucus,Urine 1+ /HPF; Urobilinogen,Urine < 2.0 mg/dL (<2.0)
[2021-01-26] MEDS ORDERED: PENICILLIN G POTASSIUM 2.5 MIL.UNITS in SODIUM CHLORIDE 0.9% 50 ML IV SCH (23:00)
[2021-01-26] MEDS ORDERED: OXYTOCIN DRIP 30 UNITS/500 ML BAG IV SCH ×2 (23:00)
[2021-01-26] MEDS: LACTATED RINGERS 1,000 ML IV SCH (23:02)
[2021-01-27 00:46] LABS: Alanine Aminotransferase 7 units/L (7-56)
[2021-01-27 01:54] LABS: Uric Acid 4.9 mg/dL (3.5-7.6)
[2021-01-27] MEDS: AMPICILLIN/NS 1 GM/50 ML 1 GM/50 ML BAG IV SCH ×5 (04:43→18:11)
--- NOTE | 2021-01-27 09:59 | History and Physical Report ---
History of Present Illness Date of examination: 01/27/21 Date of admission: 01/26/21 20:41 Chief complaint: Pt presented to L&D for an induction History of present illness: 35 y/o white female presents to L&D @ 38.4 wks for an IOL r/t LGA. She denies c/o LOF, VB and admits to active FM. Pt initiated her pnc at [facility] @ 7 3/7 wks. She was comanaged by [facility] r/t preeclampsia, obesity, and LGA. Pt has a hx of scoliosis and LGA babies. All previous babies were > 8 lbs. Pt was admitted to L&d for an IOL. Her GBS is pos. Labs: O pos AB screen Neg Rubella immune VDRL, HIV neg HBsAg Neg Varicella Immune HSV2 neg Plt 261k Hgb 14.3 HGB EE neg [place], trich,gc neg Pap NIL HPV pos MSAFP neg 24 hr urine 11/01/20 348mg GBS pos Past History Past Medical History: hypertension, other (scoliosis) Past Surgical History: no surgical history [employer] History: abnormal PAP smear Family/Genetic History: diabetes Social history: no significant social history - Obstetrical History Expected Date of Delivery: 02/06/21 Actual Gestation: 38 Week(s) 4 Day(s) : 4 Para: 4 Hx # Term Pregnancies: 3 Spontaneous Abortions: 0 Number of Living Children: 3 Medications and Allergies Allergies Allergy/AdvReac Type Severity Reaction Status Date / Time No Known Allergies Allergy Verified 09/07/16 13:20 Home Medications Medication Instructions Recorded Confirmed Last Taken Type Aspirin EC [Aspirin Enteric Coated 81 mg PO QDAY 09/07/16 09/07/16 09/06/16 21:00 History TAB] 1 Pnv,Calcium 72/Iron/Folic Acid 1 tab PO DAILY 09/07/16 09/07/16 09/06/16 21:00 History [Pnv Plus Multivit Tab] 1 Ferrous Sulfate [Feosol 325 MG tab] 325 mg PO BID #60 tablet 09/10/16 Unknown Rx Ibuprofen [Motrin 600 MG tab] 600 mg PO Q6H #30 tablet 09/10/16 Unknown Rx Vit-Fe Fumar-FA [ 1 each PO QDAY #30 tablet 09/10/16 Unknown Rx Vitamin] Active Meds: Active Medications Carboprost Tromethamine (Carboprost Tromethamine 250 Mcg/1 Ml Inj) 250 mcg IM ONCE PRN PRN Reason: Uterine Bleeding Ephedrine Sulfate (Ephedrine Sulfate 50 Mg/1 Ml Inj) 10 mg IV Q2M PRN PRN Reason: Hypotension Oxytocin/Sodium Chloride (Pitocin/Ns 30 Unit/500ml) 30 units in 500 mls @ 2 mls/hr IV TITR PALOMO; Protocol Lactated Ringer's (Lactated Ringers) 1,000 mls @ 125 mls/hr IV DIRECT PALOMO Last Admin: 01/26/21 23:02 Dose: 125 mls/hr Documented by: Oxytocin/Sodium Chloride (Pitocin/Ns 30 Unit/500ml) 30 units in 500 mls @ 40 mls/hr IV TITR PALOMO; Protocol Ampicillin Sodium (Ampicillin/Ns 1 Gm/50 Ml) 1 gm in 50 mls @ 100 mls/hr IV Q4H PALOMO; Protocol Last Admin: 01/27/21 04:43 Dose: 100 mls/hr Documented by: Methylergonovine Maleate (Methylergonovine Maleate 0.2 Mg/Ml Vial) 0.2 mg IM ONCE PRN PRN Reason: Uterine Bleeding Mineral Oil (Mineral Oil 30 Ml Oral Liqd) 30 ml PO QHS PRN PRN Reason: Constipation Misoprostol (Misoprostol 200 Mcg Tab) 800 mcg IA ONCE PRN PRN Reason: Uterine Bleeding Oxytocin (Oxytocin 10 Unit/1 Ml Inj) 10 unit IM ONCE PRN PRN Reason: Uterine Bleeding Terbutaline Sulfate (Terbutaline 1 Mg/1 Ml Inj) 0.25 mg SUB-Q ONCE PRN PRN Reason: Hyperstimulation/Hypertonicity Review of Systems All systems: negative Eyes: deferred Ears, nose, mouth and throat: deferred Breasts: normal Genitourinary: normal appearance Rectal Exam: deferred - Vital Signs Vital signs: Vital Signs Pulse BP 95 H 156/78 01/26/21 21:00 01/26/21 21:00 Temp Pulse Resp BP Pulse Ox 98.4 F 83 16 125/58 01/27/21 06:08 01/27/21 06:08 01/27/21 06:08 01/27/21 06:08 - Physical Exam Breasts: Positive: normal Abdomen: Positive: normal appearance, soft, normal bowel sounds Genitourinary (Female): Positive: normal external genitalia, normal perenium Vulva: both: normal Vagina: Positive: normal moisture Uterus: Positive: enlarged, normal contour Adnexa: both: normal Anus/Rectum: Positive: normal perianal skin Extremities: Positive: normal - Obstetrical FHR: auscultation normal, category 1 Uterine Contraction Monitor Mode: External Cervical Dilatation: 4 Cervical Effacement Percentage: 50 station: -3 Uterine Contraction Pattern: Irregular Uterine Tone Measurement Phase: Resting Uterine Contraction Intensity: Mild Results Result Diagrams: 01/26/21 21:31 01/27/21 00:09 Abnormal lab results 01/26/21 01/27/21 Range/Units 21:00 00:09 Creatinine 0.5 L (0.6-1.2) mg/dL Urine WBC (Auto) 8.0 H (0.0-6.0) /HPF U Epithel Cells (Auto) 57.0 H (0-13.0) /HPF All other labs normal. 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
[2021-01-27] MEDS ORDERED: OXYTOCIN DRIP 30 UNITS/500 ML BAG IV SCH (11:00)
[2021-01-27] MEDS: LACTATED RINGERS 1,000 ML IV SCH ×2 (15:02→18:12)
[2021-01-27] MEDS ORDERED: ePHEDrine SULFATE 50 MG/1 ML INJ IV PRN (18:24)
[2021-01-27] MEDS ORDERED: NALOXONE 2 MG/2 ML INJ IV PRN (18:24)
--- NOTE | 2021-01-27 18:25 | Anesthesia Consultation ---
Anesthesia Consult and Med Hx Date of service: 01/27/21 - Airway Anesthetic Teeth Evaluation: Good ROM Head & Neck: Adequate Mental/Hyoid Distance: Adequate Mallampati Class: Class II Intubation Access Assessment: Probably Good - Pulmonary Exam CTA: Yes - Cardiac Exam Cardiac Exam: RRR - Pre-Operative Health Status ASA Pre-Surgery Classification: ASA3 Proposed Anesthetic Plan: Epidural - Pulmonary Hx Asthma: No COPD: No Hx Pneumonia: No - Cardiovascular System Hx Hypertension: Yes - Central Nervous System Hx Seizures: No Hx Psychiatric Problems: No - Endocrine Hx Renal Disease: No Hx End Stage Renal Disease: No Hx Hypothyroidism: No Hx Hyperthyroidism: No - Hematic Hx Anemia: No Hx Sickle Cell Disease: No - Other Systems Hx Alcohol Use: No Hx Obesity: Yes
--- NOTE | 2021-01-27 18:52 | Progress Note ---
Labor Epidural - Labor Epidural Start Time: 18:34 Stop Time: 18:45 Performed by:: CRISTHIAN NAVARRO Procedure: Patient is requesting epidural for labor pain. H&P, and labs reviewed. Procedure explained, questions answered, consent obtained. Patient in sitting position with blood pressure cuff and pulse ox on and working. Timeout performed immediately before start of procedure. Sterile chlorahexadine 0.5% prep/drape. 3 mL 1% lidocaine skin wheal at L[3]-L[4]. 18-gauge [place] epidural needle advanced to [id number] with saline at 9 cm. 27-gauge spinal needle advanced until clear, free-flowing CSF. Intrathecal dexmedetomidine [5] mcg administered and needle removed. Epidural catheter advanced to 15 cm, negative aspiration for blood and csf, negative test dose 3 ml 1.5% lidocaine with epinephrine. Sterile steri-strips and tegaderm applied, followed by tape reinforcement. Patient tolerated procedure well.
[2021-01-27] MEDS ORDERED: fentaNYL-BUPIV 2 MCG/ML-0.125% 200 MCG/100 ML BAG EPIDURAL SCH (19:00)
[2021-01-27] MEDS ORDERED: LIDOCAINE (2%) 20 MG/1 ML VIAL 20 ML MDV INFILTRATI ONE (19:30)
[2021-01-27] MEDS ORDERED: ONDANSETRON 4 MG/2 ML INJ IV PRN (19:53)
[2021-01-27] MEDS ORDERED: PROMETHAZINE 25 MG RECT SUPP PR PRN (19:53)
[2021-01-27] MEDS ORDERED: MAGNESIUM HYDROXIDE (MOM) ORAL LIQD UDC PO PRN (19:53)
[2021-01-27] MEDS ORDERED: LANOLIN/ZINC/DIMETHICONE (LANSINOH) 7 GM TP PRN (19:53)
[2021-01-27] MEDS ORDERED: PROMETHAZINE 25 MG TAB PO PRN (19:53)
[2021-01-27] MEDS ORDERED: WITCH HAZEL/ GLYCERIN PAD TP PRN (19:53)
[2021-01-27] MEDS ORDERED: diphenhydrAMINE 25 MG CAP PO PRN (19:53)
--- NOTE | 2021-01-27 20:03 | Procedure Note ---
OB Delivery Note - Delivery Date of Delivery: 01/27/21 Surgeon: JONNY OGLESBY Estimated blood loss: 200cc - Vaginal Delivery presentation: vertex Delivery position: OA Delivery induction: cervidil Delivery augmentation: rupture of membranes, pitocin Delivery monitor: external FHT, external uterine Route of delivery: Delivery placenta: spontaneous Delivery cord: 3 umbilical vessels Episiotomy: none Delivery laceration: none Anesthesia: epidural Delivery comments: Called to for delivery. SVE 10/100/0 and pt was pushing. of a live viable male in OA position over an intact perineum. Spontaneous delivery of head and shoulders. directly to mom's chest for skin to skin bonding. Delayed cord clamping while NICU nurse dried and stimulated baby. Cord was clamped x 2 and FOB was allowed to cut the cord. was taken to infant warmer by NICU nurse for an initial asses. 8/9. Cord blood was obtained. Spontaneous del of an intact placenta with extra lobe and 3cv. FF@U2 with fundal massage and IV Pitocin. An exploration of tears revealed none. Mom and baby was left in stable condition with nurses. EBL 200cc. FW 4113Gms. - A at 1 minute: 8 at 5 minutes: 9 Infant Gender: Male (FW 4113 Gms)
[2021-01-28] MEDS: IBUPROFEN 600 MG TAB PO SCH ×3 (05:25→23:15)
[2021-01-28 08:08] LABS: Hematocrit 30.4 % (30.3-42.9); Hemoglobin 10.4 gm/dl (10.1-14.3)
--- NOTE | 2021-01-28 08:17 | Post Anesthesia Evaluation ---
- Post Anesthesia Evaluation Patient Participated: Yes Airway Patent: Yes Stable Respiratory Function: Yes Nausea/Vomiting: No Temp > 96.8F: Yes Pain Manageable: Yes Adequeate Hydration: Yes Anesthesia Complications: No Block Receding Appropriately: Yes
--- NOTE | 2021-01-28 14:12 | Progress Note ---
Assessment and Plan A: day 1 S/P . Anemia. P: Supplement with iron. Anticipate discharge home tomorrow if patient continues to do well. Subjective - Subjective Date of service: 01/28/21 Principal diagnosis: day 1 S/P Patient reports: appetite normal, voiding normally, pain well controlled, flatus, ambulating normally, no dizzy ambulation, no nauseated Objective - Vital Signs Latest vital signs: Vital Signs Temp Pulse Resp BP BP Pulse Ox 01/28/21 11:33 98.0 F 77 18 130/69 95 01/28/21 08:15 97.7 F 85 18 135/69 95 01/28/21 05:40 98.1 F 77 20 125/62 94 01/28/21 01:34 98.0 F 82 20 142/78 96 01/27/21 22:30 98.3 F 78 18 130/63 98 01/27/21 21:35 86 144/91 01/27/21 21:32 84 98 01/27/21 21:27 81 98 01/27/21 21:22 74 98 01/27/21 21:17 87 98 01/27/21 21:12 93 H 98 01/27/21 21:07 82 98 01/27/21 21:02 84 97 01/27/21 20:57 80 98 01/27/21 20:52 101 H 96 01/27/21 20:47 83 98 01/27/21 20:42 78 98 01/27/21 20:39 82 117/55 01/27/21 20:37 86 99 01/27/21 20:32 83 98 01/27/21 20:27 89 99 01/27/21 20:24 77 127/59 01/27/21 20:22 78 99 01/27/21 20:17 88 99 01/27/21 20:12 104 H 97 01/27/21 20:09 93 H 94/54 01/27/21 20:07 104 H 99 01/27/21 20:02 88 98 01/27/21 19:57 98.8 F 91 H 14 118/57 98 01/27/21 19:54 91 H 118/57 01/27/21 19:52 96 H 99 01/27/21 19:47 97 H 98 01/27/21 19:42 86 99 01/27/21 19:39 85 125/58 01/27/21 19:37 96 H 100 01/27/21 19:32 90 100 01/27/21 19:27 90 99 01/27/21 19:26 83 139/58 01/27/21 19:25 94 01/27/21 19:22 110 H 97 01/27/21 19:17 77 98 01/27/21 19:12 79 99 01/27/21 19:10 91 H 125/57 01/27/21 19:07 79 99 01/27/21 19:03 81 130/61 01/27/21 19:02 88 98 01/27/21 18:57 78 97 01/27/21 18:53 98 H 125/59 01/27/21 18:52 81 98 01/27/21 18:51 79 132/64 01/27/21 18:49 74 136/63 01/27/21 18:47 92 H 99 01/27/21 18:45 90 141/65 01/27/21 18:44 90 147/68 01/27/21 18:42 98 H 99 01/27/21 18:40 88 156/70 01/27/21 18:37 98 H 100 01/27/21 18:36 90 159/73 01/27/21 18:32 98 H 99 01/27/21 18:30 83 144/80 01/27/21 18:24 92 H 146/88 01/27/21 15:26 98.4 F 01/27/21 15:04 85 134/73 Intake and Output 01/27/21 01/28/21 01/28/21 23:59 07:59 15:59 Intake Total 413.834 600 Output Total 750 200 Balance 413.834 -150 -200 Intake: IV 413.834 Lactated Ringers 1,000 ml 395.833 @ 125 mls/hr IV DIRECT PALOMO Rx#:[id number] PITOCin/NS 30 UNIT/500ML 18.001 30 units In 500 ml @ Per Protocol IV TITR PALOMO Rx#: [id number] Oral 240 Intake, Free Water 360 Output: Urine 750 200 Void 750 200 Other: Total, Intake Amount 240 Total, Output Amount 750 200 # Voids Void 1 Estimated Blood Loss 232 - Exam Cardiovascular: Present: Regular rate Lungs: Present: Clear to auscultation Abdomen: Present: normal appearance, soft. Absent: distention, tenderness, guarding, rigidity Uterus: Present: normal, firm, fundal height below umbilicus. Absent: bogginess, tenderness Extremities: Present: normal. Absent: tenderness, edema
[2021-01-28] MEDS ORDERED: HYDROcodone/ACETAMINOPHEN 5-325 MG TAB PO PRN (14:13)
[2021-01-28] MEDS: FERROUS SULFATE 325 MG TAB PO SCH ×2 (16:39→21:04)
[2021-01-28] MEDS ORDERED: TETANUS,DIPH,PERTUSS(ACELL) VACCINE 0.5 ML SYRINGE IM ONE (22:00)
[2021-01-29] MEDS: IBUPROFEN 600 MG TAB PO SCH ×2 (05:17→11:07)
[2021-01-29] MEDS ORDERED: TETANUS,DIPH,PERTUSS(ACELL) VACCINE 0.5 ML SYRINGE IM ONE (06:00)
--- NOTE | 2021-01-29 07:05 | Progress Note ---
Assessment and Plan A: day 2 S/P . Anemia. UTI. P: Discharge patient home today. The following Rx were called to [facility] pharmacy on [address]: Augmentin 500-125, #14, 1 po BID and Ferrous Sulfate 325 mg, #60, 1 po BID. Advised patient to picker and packer prescriptions as soon as she is discharged and to take as prescribed. Discussed with patient discharge instructions and warning signs. Advised patient to continue taking Vitamin and iron supplements. Advised patient to avoid intercourse, lifting, housework, driving, tub baths (may take showers). Advised patient to follow up at [facility] office in 2 days; patient to call for appointment. Patient voiced understanding of all instructions. Subjective - Subjective Date of service: 01/29/21 Principal diagnosis: day 2 S/P Interval history: Taking iron for anemia. Patient requests discharge home today. Patient reports: appetite normal, voiding normally, pain well controlled, flatus, ambulating normally, no dizzy ambulation, no nauseated : doing well Objective - Vital Signs Latest vital signs: Vital Signs Temp Pulse Resp BP BP Pulse Ox 01/29/21 00:33 97.9 F 83 20 138/76 97 01/28/21 17:00 98.1 F 86 18 130/71 97 01/28/21 11:33 98.0 F 77 18 130/69 95 01/28/21 08:15 97.7 F 85 18 135/69 95 Intake and Output 01/28/21 01/28/21 01/29/21 15:59 23:59 07:59 Intake Total 240 600 Output Total 200 Balance -200 240 600 Intake: Oral 240 600 Output: Urine 200 Void 200 Other: Total, Intake Amount 240 120 Total, Output Amount 200 # Voids Void 1 1 1 - Exam Cardiovascular: Present: Regular rate Lungs: Present: Clear to auscultation Abdomen: Present: normal appearance, soft, normal bowel sounds. Absent: distention, tenderness, guarding, rigidity Uterus: Present: normal, firm, fundal height below umbilicus. Absent: bogginess, tenderness Extremities: Present: normal. Absent: edema
--- NOTE | 2021-01-29 07:21 | Discharge Summary ---
Providers - Providers Date of Admission: 01/26/21 20:41 Date of discharge: 01/29/21 Attending physician: YOLANDA CHRISTINE Primary care physician: YOLANDA CHRISTINE Hospitalization Reason for admission: induction of labor Delivery: Episiotomy: none Laceration: none Other procedures: none complications: none Discharge diagnosis: IUP at term delivered baby: male Pertinent studies: Labs Hospital course: Stable hospital course. Condition at discharge: Good Disposition: DC-01 TO HOME OR SELFCARE - Discharge Diagnoses (1) Term delivered Status: Acute (2) Anemia Status: Acute Plan - Provider Discharge Summary Activity: routine, no sex for 6 weeks, no heavy lifting 4 weeks, no strenuous exercise Diet: routine Instructions: routine Additional instructions: [] human resources support specialist your prescriptions for iron and Augmentin at [facility] on [facility] and take as prescribed. Continue taking your vitamin at home. Follow up at [facility] office in 2 days (call office to obtain appointment). Call your doctor immediately for: * Fever > 100.5 * Heavy vaginal bleeding ( >1 pad per hour) * Severe persistent headache * Shortness of breath * Reddened, hot, painful area to leg or breast - Follow up plan Follow up: YOLANDA CHRISTINE MD [Primary Care Provider] - 48 Hours
[2021-01-29 09:03] VITALS: BP 139/80
[2021-01-29] MEDS: FERROUS SULFATE 325 MG TAB PO SCH (11:06)
== END 2021-01-29 15:35 | disposition home or self-care (01) | DRG 774 ==
LOC: LD 20:41 → OB 01-27 22:27
PROVIDERS: ADMIT Obstetrics & Gynecology; ATTEND Obstetrics & Gynecology
PROC: 10E0XZZ Delivery of Products of Conception, External Approach (ICD-10-PCS; principal; 2021-01-27)
PROC: 3E0P7VZ Introduction of Hormone into Female Reproductive, Via Natural or Artificial Opening (ICD-10-PCS; 2021-01-27)
PROC: 3E0R3BZ Introduction of Anesthetic Agent into Spinal Canal, Percutaneous Approach (ICD-10-PCS; 2021-01-27)
PROC: 00HU33Z Insertion of Infusion Device into Spinal Canal, Percutaneous Approach (ICD-10-PCS; 2021-01-27)
PROC: 3E0234Z Introduction of Serum, Toxoid and Vaccine into Muscle, Percutaneous Approach (ICD-10-PCS; 2021-01-28)
DX: O36.63X0 Maternal care for excessive fetal growth, third trimester, not applicable or unspecified (principal); O98.32 Other infections with a predominantly sexual mode of transmission complicating childbirth; Z3A.38 38 weeks gestation of pregnancy; A63.0 Anogenital (venereal) warts; Z37.0 Single live birth; Z20.822 Contact with and (suspected) exposure to COVID-19; Z23 Encounter for immunization; O99.824 Streptococcus B carrier state complicating childbirth; O99.214 Obesity complicating childbirth; E66.9 Obesity, unspecified; M41.9 Scoliosis, unspecified; O75.89 Other specified complications of labor and delivery; O11.4 Pre-existing hypertension with pre-eclampsia, complicating childbirth; O90.81 Anemia of the puerperium; D64.9 Anemia, unspecified; O86.20 Urinary tract infection following delivery, unspecified
CPT/HCPCS: 36415; 59025; 59200; 81001; 82565; 83615; 84450; 84460; 84550; 85014; 85018; 85027; 86592; 86850; 86900; 86901; 87086; 90471; 90715; 96360; 99211; G0378; G0463; J0290; J2590; J7120; U0003

== ENCOUNTER 2021-02-02 18:23 | Observation (INO) | payer MEDICAID ==
--- NOTE | 2021-02-02 19:21 | Event Note ---
ED Screening Note Date of service: 02/02/21 Time: 19:18 ED Screening Note: 35-year-old female patient presents to the emergency department 6 days status post uncomplicated vaginal delivery for evaluation of elevated blood pressure. Patient was evaluated at [facility] earlier today. Her blood pressure was elevated in the office and she was advised to go home, rest, and go to the fire department for blood pressure recheck later in the day. When her blood pressure was rechecked, it remained elevated. She contacted her OB, who advised her to come to the emergency department for further evaluation. This was patient's fourth and she states she experienced issues with blood pressure during all of her previous pregnancies. She has never been diagnosed with preeclampsia or eclampsia. Patient does endorse bilateral nonpitting lower extremity edema. No vision changes. No seizures. General: Awake, appropriately interactive, no acute distress. Neck: Supple. Full range of motion intact. Cardiovascular: Normal peripheral perfusion. Swelling noted to the feet bilat erally. Pulmonary: No respiratory distress. Patient is speaking normally without use of accessory muscles. Skin: No apparent rashes or lesions. Neurological: No facial asymmetry. Speech is clear. Follows commands. Patient is alert and oriented. Musculoskeletal: Moves all four extremities spontaneously with normal range of motion. Psych: Cooperative. Appropriate mood and affect. I have greeted and performed a focused rapid initial assessment of this patient. A comprehensive ED assessment and evaluation of the patient, analysis of all test results, and completion of the medical decision-making process will be conducted by additional ED providers. This initial assessment/diagnostic orders/clinical plan/treatment(s) is/are subject to change based on patients health status, clinical progression and re-assessment. Further treatment and workup at subsequent clinical provider's discretion. Patient/guardian urged not to elope from the ED as their condition may be serious if not clinically assessed and managed.
[2021-02-02 19:45] LABS: Basophils % (Auto) 0.3 % (0.0-1.8); Eosinophils # (Auto) 0.1 K/mm3 (0.0-0.4); Eosinophils % (Auto) 1.7 % (0.0-4.3); Hematocrit 38.4 % (30.3-42.9); Hemoglobin 13.1 gm/dl (10.1-14.3); Lymphocytes # (Auto) 2.8 K/mm3 (1.2-5.4); Lymphocytes % (Auto) 34.2 % (13.4-35.0); Mean Corpuscular HGB Conc 34 % (30-34); Mean Corpuscular Volume 87 fl (79-97); Monocytes # (Auto) 0.6 K/mm3 (0.0-0.8); Monocytes % (Auto) 7.1 % (0.0-7.3); Platelet Count 277 K/mm3 (140-440); Red Blood Count 4.43 M/mm3 (3.65-5.03); Red Cell Distribution Width 14.7 % (13.2-15.2)
[2021-02-02 20:23] LABS: Alanine Aminotransferase 19 units/L (7-56); Albumin 3.9 g/dL (3.9-5); Blood Urea Nitrogen 13 mg/dL (7-17); Calcium 8.8 mg/dL (8.4-10.2); Hemolysis Index 19
[2021-02-02 20:30] LABS: BUN/Creatinine Ratio 22
[2021-02-02 20:39] LABS: Bacteria,Urine 1+ /HPF (Negative); Bilirubin,Urine NEG (Negative); Blood,Urine LG (Negative); Color,Urine Amber (Yellow); Mucus,Urine 3+ /HPF
[2021-02-02 20:41] LABS: Protein,Urine >500 mg/dL (Negative); RBC,Urine > 182.0 /HPF (0.0-6.0)
[2021-02-02] MEDS ORDERED: MAGNESIUM SULFATE 2 GM/50 ML BAG IV ONE (21:25)
--- NOTE | 2021-02-02 21:46 | Emergency Department Report ---
ED General Adult HPI - General Chief complaint: High BP Stated complaint: ELEVATED BLOOD PRESSURE Time Seen by Provider: 02/02/21 21:01 Source: patient Mode of arrival: Ambulatory Limitations: No Limitations - History of Present Illness Initial comments: 35-year-old female 6 days with hypertension during treated with aspirin presents to the emerge department complaining of headache with occasional occasional dizziness elevated blood pressure while at the [facility] was advised to come to the ED for further evaluation. Reports no chest pain palpitations no nausea vomiting. No fevers chills or sweats. Quality: dull Consistency: constant Improves with: none Worsens with: none Associated Symptoms: denies other symptoms Treatments Prior to Arrival: none - Related Data Home Medications Medication Instructions Recorded Confirmed Last Taken No Known Home Medications [No 01/28/21 01/28/21 Unknown Reported Home Medications] Allergies Allergy/AdvReac Type Severity Reaction Status Date / Time No Known Allergies Allergy Verified 01/28/21 15:14 ED Review of Systems ROS: Stated complaint: ELEVATED BLOOD PRESSURE Other details as noted in HPI Comment: All other systems reviewed and negative ED Past Medical Hx - Past Medical History Previous Medical History?: Yes Hx Hypertension: Yes Hx Congestive Heart Failure: No Hx Diabetes: No Hx Deep Vein Thrombosis: No Hx Renal Disease: No Hx Sickle Cell Disease: No Hx Seizures: No Hx Asthma: No Hx COPD: No Hx HIV: No - Surgical History Past Surgical History?: Yes Additional Surgical History: right arm surgery - Social History Smoking Status: Former Smoker - Medications Home Medications: Home Medications Medication Instructions Recorded Confirmed Last Taken Type No Known Home Medications [No 01/28/21 01/28/21 Unknown History Reported Home Medications] ED Physical Exam - General Limitations: No Limitations General appearance: alert, in no apparent distress - Head Head exam: Present: atraumatic, normocephalic - Eye Eye exam: Present: normal appearance, PERRL, EOMI Pupils: Present: normal accommodation - ENT ENT exam: Present: normal exam, normal orophraynx, mucous membranes moist - Neck Neck exam: Present: normal inspection, full ROM - Respiratory Respiratory exam: Present: normal lung sounds bilaterally. Absent: respiratory distress, wheezes, rhonchi, stridor - Cardiovascular Cardiovascular Exam: Present: regular rate, normal rhythm. Absent: systolic murmur, diastolic murmur, rubs, gallop - GI/Abdominal GI/Abdominal exam: Present: soft, normal bowel sounds. Absent: tenderness, guarding, rebound, hyperactive bowel sounds, hypoactive bowel sounds - Extremities Exam Extremities exam: Present: normal inspection, normal capillary refill. Absent: pedal edema, joint swelling - Back Exam Back exam: Present: normal inspection. Absent: CVA tenderness (R), CVA tenderness (L), muscle spasm - Neurological Exam Neurological exam: Present: alert, oriented X3, CN II-XII intact, normal gait - Psychiatric Psychiatric exam: Present: normal affect, normal mood - Skin Skin exam: Present: warm, dry, intact, normal color. Absent: rash ED Course Vital Signs 02/02/21 18:46 Temperature 98.2 F Pulse Rate 77 Respiratory 18 Rate Blood Pressure 177/94 O2 Sat by Pulse 98 Oximetry ED Medical Decision Making - Lab Data Result diagrams: 02/02/21 19:25 02/02/21 19:25 Lab Results 02/02/21 02/02/21 02/02/21 Range/Units 19:25 19:25 20:24 WBC 8.3 (4.5-11.0) K/mm3 RBC 4.43 (3.65-5.03) M/mm3 Hgb 13.1 (10.1-14.3) gm/dl Hct 38.4 (30.3-42.9) % MCV 87 (79-97) fl MCH 30 (28-32) pg MCHC 34 (30-34) % RDW 14.7 (13.2-15.2) % Plt Count 277 (140-440) K/mm3 Lymph % (Auto) 34.2 (13.4-35.0) % [place] % (Auto) 7.1 (0.0-7.3) % Eos % (Auto) 1.7 (0.0-4.3) % Baso % (Auto) 0.3 (0.0-1.8) % Lymph # (Auto) 2.8 (1.2-5.4) K/mm3 [place] # (Auto) 0.6 (0.0-0.8) K/mm3 Eos # (Auto) 0.1 (0.0-0.4) K/mm3 Baso # (Auto) 0.0 (0.0-0.1) K/mm3 Seg Neutrophils % 56.7 (40.0-70.0) % Seg Neutrophils # 4.7 (1.8-7.7) K/mm3 Sodium 141 (137-145) mmol/L Potassium 4.0 (3.6-5.0) mmol/L Chloride 106.0 (98-107) mmol/L Carbon Dioxide 23 (22-30) mmol/L Anion Gap 16 mmol/L BUN 13 (7-17) mg/dL Creatinine 0.6 (0.6-1.2) mg/dL Estimated GFR > 60 ml/min BUN/Creatinine Ratio 22 % Glucose 77 (65-100) mg/dL Calcium 8.8 (8.4-10.2) mg/dL Magnesium 2.10 (1.7-2.3) mg/dL Total Bilirubin 0.30 (0.1-1.2) mg/dL AST 30 (5-40) units/L ALT 19 (7-56) units/L Alkaline Phosphatase 133 H (35-129) units/L Total Protein 7.0 (6.3-8.2) g/dL Albumin 3.9 (3.9-5) g/dL Albumin/Globulin Ratio 1.3 % Urine Color [place] (Yellow) Urine Turbidity Slightly-cloudy (Clear) Urine pH 5.0 (5.0-7.0) Ur Specific [place] 1.028 (1.003-1.030) Urine Protein >500 (Negative) mg/dL Urine Glucose (UA) Neg (Negative) mg/dL Urine Ketones Tr (Negative) mg/dL Urine Blood Lg (Negative) Urine Nitrite Neg (Negative) Urine Bilirubin Neg (Negative) Urine Urobilinogen 2.0 (<2.0) mg/dL Ur Leukocyte Esterase Mod (Negative) Urine WBC (Auto) 69.0 H (0.0-6.0) /HPF Urine RBC (Auto) > 182.0 (0.0-6.0) /HPF U Epithel Cells (Auto) 5.0 (0-13.0) /HPF Urine Bacteria (Auto) 1+ (Negative) /HPF Ur Transition Epith Cell 2 /HPF Urine Mucus 3+ /HPF - Medical Decision Making 35-year-old female 6 months 6 days with hypertension and headache with vague dizziness but no edema and proteinuria. Suggestive of preeclampsia plan will admit to [facility]. Patient be transported to labor and delivery and they will call the lifecycle monitoring coordinator [facility] for admission orders. Case was discussed with my attending Dr. Geraldo Mead whom is aware of the current findings. Critical care attestation.: If time is entered above; I have spent that time in minutes in the direct care of this critically ill patient, excluding procedure time. ED Disposition Clinical Impression: Pre-eclampsia in period Disposition: OP ADMIT IP TO THIS HOSP Is pt being admited?: Yes Does the pt Need Aspirin: No Condition: Stable Instructions: Hypertension (ED)
[2021-02-03] MEDS ORDERED: MAGNESIUM SULFATE 4 GM/100 ML BAG IV ONE ×2 (00:44→00:48)
[2021-02-03] MEDS ORDERED: MAGNESIUM SULFATE 40GM/1000ML 40 GM/1,000 ML BAG IV ONE (00:48)
[2021-02-03] MEDS ORDERED: LACTATED RINGERS 1,000 ML IV SCH (01:00)
[2021-02-03] MEDS ORDERED: MAGNESIUM SULFATE 40GM/1000ML 40 GM/1,000 ML BAG IV SCH (01:00)
[2021-02-03] MEDS: ACETAMINOPHEN 325 MG TAB PO PRN ×2 (02:12→08:47)
--- NOTE | 2021-02-03 09:21 | Progress Note ---
Assessment and Plan DELAYED PIH. BP IS MUCH IMPROVED. POSSIBLE D/C IN AM. 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 NOW ON MAGSO4 AND LABETALOL. OCC HEADACHE TREATED WITH PO TYLENOL . BP IS MUCH BETTER. STOP MAGSO4 AT [facility]. Patient reports: appetite normal [place]: doing well Objective - Vital Signs Latest vital signs: Vital Signs Temp Pulse Resp BP BP Pulse Ox 02/03/21 09:15 83 154/73 02/03/21 09:14 98 H 99 02/03/21 09:13 86 170/86 02/03/21 09:09 89 98 02/03/21 09:04 100 H 98 02/03/21 08:59 92 H 98 02/03/21 08:54 94 H 99 02/03/21 08:51 81 161/88 02/03/21 08:49 94 H 98 02/03/21 08:47 18 02/03/21 08:44 76 98 02/03/21 08:39 77 98 02/03/21 08:34 74 98 02/03/21 08:29 77 97 02/03/21 08:24 81 99 02/03/21 08:21 80 138/70 02/03/21 08:19 92 H 99 02/03/21 08:14 75 98 02/03/21 08:09 85 98 02/03/21 08:04 81 98 02/03/21 08:00 98.4 F 18 02/03/21 07:59 82 97 02/03/21 07:54 81 99 02/03/21 07:51 76 134/72 02/03/21 07:49 88 98 02/03/21 07:44 85 99 06 07:39 84 98 02/03/21 07:34 74 97 06 07:29 76 97 02/03/21 07:24 78 94 06 07:21 69 131/75 06 07:19 75 97 02/03/21 07:14 69 97 02/03/21 07:09 72 97 02/03/21 07:05 83 93 02/03/21 07:04 70 97 02/03/21 06:59 81 97 02/03/21 06:54 79 97 06 06:51 76 148/64 02/03/21 06:49 80 97 02/03/21 06:44 81 96 02/03/21 06:39 82 97 02/03/21 06:34 83 96 02/03/21 06:29 82 96 02/03/21 06:24 82 97 02/03/21 06:21 76 128/58 02/03/21 06:19 79 97 02/03/21 06:14 72 97 02/03/21 06:09 86 93 02/03/21 06:04 76 98 06 05:59 74 96 06 05:54 71 97 02/03/21 05:51 75 137/63 02/03/21 05:49 73 97 02/03/21 05:44 72 96 02/03/21 05:39 71 97 02/03/21 05:35 80 94 02/03/21 05:34 80 95 06 05:29 75 95 02/03/21 05:24 71 97 06 05:21 68 127/69 06 05:19 82 98 06 04:51 80 113/57 06 04:21 78 112/61 06 03:51 74 120/65 0603 03:21 71 120/61 06 03:15 97.7 F 02/03/21 02:51 63 139/67 06 02:21 61 133/76 06 01:48 62 148/81 06 01:43 65 136/80 06 01:41 69 136/75 02/03/21 01:38 69 136/75 02/03/21 01:33 71 138/63 02/03/21 01:28 78 139/79 02/03/21 01:23 68 142/70 02/03/21 01:18 75 153/72 02/03/21 01:13 88 161/79 02/03/21 01:11 98.2 F 20 02/03/21 01:03 71 151/82 02/03/21 01:00 20 02/03/21 00:54 62 160/86 02/03/21 00:30 65 177/86 02/02/21 22:38 16 02/02/21 22:28 165/90 02/02/21 21:58 151/92 02/02/21 21:32 72 02/02/21 21:31 138/85 02/02/21 21:30 150/86 02/02/21 21:28 71 150/86 02/02/21 18:46 98.2 F 77 18 177/94 98 Intake and Output 02/02/21 02/03/21 02/03/21 23:59 07:59 15:59 Output Total 1200 500 Balance -1200 -500 Output: Urine 1200 500 Indwelling Catheter 1200 500 Other: Total, Output Amount 100 500 Weight 109.769 kg - Exam Abdomen: Present: normal appearance, soft Vulva: both: normal Uterus: Present: normal, firm Extremities: Present: normal Deep Tendon Reflex Grade: Normal +2 Incision: Present: normal, dry, intact - Labs Labs: Abnormal lab results 02/02/21 02/02/21 02/03/21 Range/Units 19:25 20:24 07:34 Magnesium 5.20 H (1.7-2.3) mg/dL Alkaline Phosphatase 133 H (35-129) units/L Urine WBC (Auto) 69.0 H (0.0-6.0) /HPF
[2021-02-03] MEDS: HYDROcodone/ACETAMINOPHEN 5-325 MG TAB PO SCH (17:13)
[2021-02-04] MEDS: HYDROcodone/ACETAMINOPHEN 5-325 MG TAB PO SCH (05:17)
--- NOTE | 2021-02-04 08:42 | Progress Note ---
Subjective - Subjective Date of service: 02/04/21 Principal diagnosis: delayed pih, s/p Interval history: BP's <140/90, stable on oral labetalol plan for d/c to home and FUP in clinic one week Albertina Light MD Patient reports: appetite normal, voiding normally, pain well controlled, ambulating normally Objective - Vital Signs Latest vital signs: Vital Signs Temp Pulse Resp BP BP Pulse Ox 02/04/21 04:40 98.3 F 76 20 147/60 95 02/04/21 02:05 98.2 F 79 18 131/73 98 02/04/21 01:12 98.5 F 81 18 133/74 133/74 98 02/04/21 01:10 88 96 02/04/21 01:05 86 96 02/04/21 01:00 86 95 02/04/21 00:58 88 94 02/04/21 00:55 81 96 02/04/21 00:50 78 96 02/04/21 00:45 90 97 02/04/21 00:40 86 95 02/04/21 00:35 84 95 02/04/21 00:30 85 95 02/04/21 00:25 84 95 02/04/21 00:20 83 96 02/04/21 00:15 81 96 02/04/21 00:12 80 18 139/67 139/67 97 02/04/21 00:10 80 97 02/04/21 00:05 90 98 02/04/21 00:00 82 96 02/03/21 23:55 88 97 02/03/21 23:50 88 98 02/03/21 23:45 95 H 99 02/03/21 23:40 86 96 02/03/21 23:35 82 96 02/03/21 23:30 83 97 02/03/21 23:25 84 97 02/03/21 23:20 85 97 02/03/21 23:15 85 97 02/03/21 23:12 81 18 130/67 130/67 02/03/21 23:10 83 97 02/03/21 23:05 92 H 98 02/03/21 23:00 84 98 02/03/21 22:55 89 98 02/03/21 22:50 91 H 98 02/03/21 22:45 94 H 98 02/03/21 22:40 84 98 02/03/21 22:35 92 H 97 02/03/21 22:30 93 H 97 02/03/21 22:25 89 97 02/03/21 22:20 99 H 98 02/03/21 22:15 89 98 02/03/21 22:12 98.4 F 85 18 137/70 130/70 98 02/03/21 22:10 98 H 98 02/03/21 22:05 89 99 02/03/21 22:00 89 98 02/03/21 21:55 89 97 02/03/21 21:50 92 H 98 02/03/21 21:45 91 H 97 02/03/21 21:40 98 H 97 02/03/21 21:35 89 98 02/03/21 21:30 85 147/72 97 02/03/21 21:25 92 H 98 02/03/21 21:20 94 H 98 02/03/21 21:15 89 97 02/03/21 21:12 87 18 141/72 147/72 02/03/21 21:10 86 98 02/03/21 21:05 86 97 02/03/21 21:00 91 H 98 02/03/21 20:55 89 97 02/03/21 20:50 90 98 02/03/21 20:45 88 98 02/03/21 20:40 85 97 02/03/21 20:35 89 97 02/03/21 20:30 91 H 97 02/03/21 20:25 86 98 02/03/21 20:20 91 H 98 02/03/21 20:15 93 H 98 02/03/21 20:12 85 18 126/72 02/03/21 20:10 92 H 96 02/03/21 20:05 90 97 02/03/21 20:00 101 H 97 02/03/21 19:55 94 H 98 02/03/21 19:50 98 H 98 02/03/21 19:45 93 H 98 02/03/21 19:40 96 H 98 02/03/21 19:35 91 H 96 02/03/21 19:30 96 H 98 02/03/21 19:25 87 96 02/03/21 19:20 86 98 02/03/21 19:15 98.9 F 87 18 98 02/03/21 19:10 92 H 97 0603/21 19:05 86 98 02/03/21 19:00 90 96 02/03/21 18:55 109 H 98 02/03/21 18:51 98 H 137/77 02/03/21 18:50 90 95 02/03/21 18:45 92 H 96 02/03/21 18:40 92 H 95 02/03/21 18:35 93 H 95 02/03/21 18:30 90 96 02/03/21 18:25 88 96 02/03/21 18:21 88 136/69 02/03/21 18:20 86 97 02/03/21 18:15 87 97 02/03/21 18:10 86 97 02/03/21 18:05 86 97 02/03/21 18:00 90 98 02/03/21 17:55 94 H 98 02/03/21 17:51 88 145/69 02/03/21 17:50 85 98 02/03/21 17:45 100 H 99 02/03/21 17:40 89 98 02/03/21 17:35 96 H 97 02/03/21 17:30 93 H 98 02/03/21 17:25 102 H 97 02/03/21 17:22 95 H 162/83 02/03/21 17:20 101 H 99 02/03/21 17:15 102 H 98 02/03/21 17:13 18 02/03/21 17:10 96 H 98 02/03/21 17:05 92 H 98 02/03/21 17:00 93 H 97 02/03/21 16:55 102 H 99 02/03/21 16:51 90 142/72 02/03/21 16:50 93 H 95 02/03/21 16:45 95 H 98 02/03/21 16:40 100 H 99 02/03/21 16:35 96 H 97 02/03/21 16:30 101 H 98 02/03/21 16:25 98 H 97 02/03/21 16:21 92 H 138/73 02/03/21 16:20 98 H 98 02/03/21 16:15 99 H 97 02/03/21 16:10 96 H 98 02/03/21 16:05 101 H 98 02/03/21 16:00 98.1 F 91 H 18 96 02/03/21 15:55 92 H 97 06 15:51 93 H 144/74 02/03/21 15:50 96 H 98 06 15:45 102 H 98 02/03/21 15:40 100 H 97 02/03/21 15:35 97 H 97 02/03/21 15:30 94 H 96 02/03/21 15:25 97 H 97 02/03/21 15:21 96 H 138/65 02/03/21 15:20 101 H 98 06 15:15 105 H 98 02/03/21 15:10 100 H 96 06 15:05 107 H 97 06 15:00 102 H 97 02/03/21 14:55 102 H 98 02/03/21 14:51 102 H 134/69 02/03/21 14:50 105 H 98 02/03/21 14:45 97 H 97 02/03/21 14:40 98 H 96 02/03/21 14:35 104 H 97 02/03/21 14:30 104 H 97 02/03/21 14:25 102 H 97 02/03/21 14:21 100 H 144/78 02/03/21 14:20 106 H 98 02/03/21 14:15 104 H 97 02/03/21 14:10 104 H 97 02/03/21 14:05 101 H 97 02/03/21 14:00 98 H 97 02/03/21 13:55 102 H 97 02/03/21 13:51 102 H 147/72 02/03/21 13:50 109 H 98 02/03/21 13:45 107 H 99 02/03/21 13:40 97 H 98 02/03/21 13:35 97 H 98 02/03/21 13:30 99 H 98 02/03/21 13:25 97 H 96 02/03/21 13:21 95 H 124/70 02/03/21 13:20 95 H 97 02/03/21 13:15 101 H 96 02/03/21 13:10 99 H 98 02/03/21 13:05 99 H 98 02/03/21 13:00 99 H 97 02/03/21 12:55 99 H 97 02/03/21 12:51 92 H 135/62 02/03/21 12:50 98 H 99 02/03/21 12:45 100 H 98 02/03/21 12:40 102 H 97 02/03/21 12:35 101 H 98 02/03/21 12:30 100 H 97 02/03/21 12:25 97 H 97 02/03/21 12:20 95 H 95 02/03/21 12:15 92 H 95 02/03/21 12:10 93 H 96 02/03/21 12:05 95 H 97 02/03/21 12:00 97.8 F 106 H 18 98 02/03/21 11:55 106 H 97 02/03/21 11:51 100 H 138/71 02/03/21 11:50 103 H 98 02/03/21 11:45 94 H 97 02/03/21 11:40 96 H 97 02/03/21 11:35 91 H 96 02/03/21 11:30 96 H 97 02/03/21 11:25 92 H 98 02/03/21 11:21 92 H 132/61 02/03/21 11:20 95 H 98 02/03/21 11:15 95 H 96 02/03/21 11:10 95 H 96 02/03/21 11:05 100 H 98 02/03/21 10:59 99 H 97 02/03/21 10:54 94 H 98 02/03/21 10:51 94 H 125/63 02/03/21 10:49 92 H 96 02/03/21 10:44 91 H 96 02/03/21 10:39 97 H 96 02/03/21 10:34 98 H 98 02/03/21 10:29 98 H 97 02/03/21 10:24 101 H 98 02/03/21 10:21 95 H 118/58 02/03/21 10:19 101 H 97 02/03/21 10:14 93 H 97 02/03/21 10:09 95 H 97 02/03/21 10:04 102 H 98 02/03/21 09:59 102 H 99 02/03/21 09:54 94 H 97 02/03/21 09:51 95 H 135/63 02/03/21 09:49 89 97 02/03/21 09:44 96 H 98 02/03/21 09:39 95 H 98 02/03/21 09:37 94 H 143/67 02/03/21 09:36 97 H 143/67 02/03/21 09:34 92 H 97 02/03/21 09:29 92 H 98 02/03/21 09:24 89 97 02/03/21 09:21 84 145/68 02/03/21 09:19 86 98 02/03/21 09:15 83 154/73 02/03/21 09:14 98 H 99 02/03/21 09:13 86 170/86 02/03/21 09:09 89 98 02/03/21 09:04 100 H 98 02/03/21 08:59 92 H 98 02/03/21 08:54 94 H 99 02/03/21 08:51 81 161/88 02/03/21 08:49 94 H 98 02/03/21 08:47 18 02/03/21 08:44 76 98 Intake and Output 02/03/21 02/04/21 02/04/21 23:59 07:59 15:59 Intake Total 600 440 Output Total 2850 1000 Balance -2250 -560 Intake: Oral 600 440 Output: Urine 2850 1000 Indwelling Catheter 1900 500 Uretheral ([place]) 950 500 Other: Total, Intake Amount 100 240 Total, Output Amount 250 250 # Voids Void 0 - Exam Breasts: Present: deferred Cardiovascular: Present: Regular rate Lungs: Present: Clear to auscultation Abdomen: Present: normal appearance, soft, normal bowel sounds Uterus: Present: fundal height below umbilicus Extremities: Present: normal Deep Tendon Reflex Grade: Normal but brisk +3 - Labs Labs: Abnormal lab results 02/03/21 02/03/21 Range/Units 15:35 23:44 Magnesium 5.40 H 4.20 H (1.7-2.3) mg/dL
--- NOTE | 2021-02-04 08:43 | Discharge Summary ---
Providers - Providers Date of Admission: 02/02/21 22:53 Date of discharge: 02/04/21 Attending physician: YOLANDA CHRISTINE Primary care physician: ROBERTO CORBIN NP Hospitalization Reason for admission: other (PP preeclampsia) Condition at discharge: Stable Disposition: DC-01 TO HOME OR SELFCARE Plan - Discharge Medications Prescriptions: labetaloL [Labetalol 200mg TAB] 200 mg PO BID #60 tablet - Provider Discharge Summary Activity: no sex for 6 weeks Diet: routine Instructions: routine Additional instructions: [] Smoking cessation referral if applicable(refer to patient education folder for contact #) [] Refer to [facility]'s [facility] Booklet Call your doctor immediately for: * Fever > 100.5 * Heavy vaginal bleeding ( >1 pad per hour) * Severe persistent headache * Shortness of breath * Reddened, hot, painful area to leg or breast * Drainage or odor from incision. * Keep incision clean and dry at all times and follow doctor's instructions regarding bathing/showering - Follow up plan Follow up: ROBERTO CORBIN NP [Primary Care Provider] - 7 Days CAITLYN HERNÁNDEZ MD [Staff Physician] - 7 Days
[2021-02-04 08:48] VITALS: BP 127/68
== END 2021-02-04 15:50 | disposition home or self-care (01) ==
LOC: ED 18:23 → LD 22:53 → OB 02-04 02:19
PROVIDERS: ADMIT Obstetrics & Gynecology; ATTEND Obstetrics & Gynecology
DX: O14.95 Unspecified pre-eclampsia, complicating the puerperium (principal); O90.81 Anemia of the puerperium; O90.89 Other complications of the puerperium, not elsewhere classified; M41.9 Scoliosis, unspecified; Z79.899 Other long term (current) drug therapy; Z98.890 Other specified postprocedural states; Z87.891 Personal history of nicotine dependence
CPT/HCPCS: 36415; 80053; 81001; 83735; 85025; 87086; 96365; 96366; 99284; G0378; J3475; J7120